=== PATIENT | male | born 1965 | race Caucasian/White ===

== ENCOUNTER 2019-05-26 16:29 | Observation (INO) | payer SELFPAY ==
[2019-05-26] MEDS ORDERED: Sodium Chloride 0.9% 1,000 ML IV ONE (16:35)
--- NOTE | 2019-05-26 16:38 | EDM.PDOC ---
ED HPI GENERAL MEDICAL PROBLEM - General Chief Complaint: General Stated Complaint: STOMACH FLU Time Seen by Provider: 05/26/19 16:32 - History of Present Illness INITIAL COMMENTS - FREE TEXT/NARRATIVE: HISTORY AND PHYSICAL: History of present illness: 53-year-old white male with no significant past medical history presents with a concern of generalized weakness and confusion with an worse over the last several weeks he did have a fall today without associated trauma he presents by EMS were called by his brother. Patient denies chest pain palpitations shortness breath fever chills he does refer nausea. Review of systems: As per history of present illness and below otherwise all systems reviewed and negative. Past medical history: As per history of present illness and as reviewed below otherwise noncontributory. Surgical history: As per history of present illness and as reviewed below otherwise noncontributory. Social history: No reported history of drug or alcohol abuse. Family history: As per history of present illness and as reviewed below otherwise noncontributory. Physical exam: HEENT: Atraumatic, normocephalic, pupils reactive, negative for conjunctival pallor or scleral icterus, mucous membranes moist, throat clear, neck supple, nontender, trachea midline. Lungs: Clear to auscultation, breath sounds equal bilaterally, chest nontender. Heart: S1S2, regular, negative for clicks, rubs, or JVD. Abdomen: Soft, nondistended, nontender. Negative for masses or hepatosplenomegaly. Negative for costovertebral tenderness. Pelvis: Stable nontender. Genitourinary: Deferred. Rectal: Deferred. Extremities: Atraumatic, negative for cords or calf pain. Neurovascular unremarkable. Neuro: Awake, alert, oriented person and place Cranial nerves II through XII unremarkable. Cerebellum unremarkable. Motor and sensory unremarkable throughout. Exam nonfocal. Diagnostics: CBC CMP troponin PT/INR chest x-ray EKG CT brain ammonia level blood cultures 2 UA urine drug screen lactate ABG Therapeutics: IV O2 monitor Impression: #1 altered mental status #2 generalized weakness #3 history of fall Definitive disposition and diagnosis as appropriate pending reevaluation and review of above. - Related Data Allergies Allergy/AdvReac Type Severity Reaction Status Date / Time No Known Allergies Allergy Verified 05/26/19 16:38 Home Meds: Home Meds . [No Known Home Meds] 06/28/14 [History] ED ROS GENERAL - Review of Systems Review Of Systems: Comprehensive ROS is negative, except as noted in HPI. ED EXAM, GENERAL - Physical Exam Exam: See Below (See dictation) Course - Vital Signs Last Recorded V/S: Last Vital Signs Temp 36.3 C 05/26/19 16:35 Pulse 91 05/26/19 17:04 Resp 16 05/26/19 17:04 BP 175/125 H 05/26/19 17:04 Pulse Ox 100 05/26/19 17:04 - Orders/Labs/Meds Orders: Active Orders 24 hr Category Date Time Status EKG Documentation Completion [RC] STAT Care 05/26/19 16:34 Active Pulse Oximetry [RC] ASDIRECTED Care 05/26/19 16:34 Active CULTURE BLOOD [BC] Stat Lab 05/26/19 16:32 Received CULTURE BLOOD [BC] Stat Lab 05/26/19 16:55 Received DRUG SCREEN, URINE [URCHEM] Stat Lab 05/26/19 16:34 Ordered UA RFX TERESA AND CULT IF INDIC [URIN] Stat Lab 05/26/19 16:34 Ordered MVI, Adult with Vitamin K [Infuvite Adult] 10 ml Med 05/26/19 17:39 Active Thiamine [Vitamin B-1] 100 mg Folic Acid 1 mg Sodium Chloride 0.9% [Normal Saline] 1,000 ml IV STAT Potassium Chloride Riders [KCL 40 MEQ in Water 100 ML] Med 05/26/19 17:40 Active 40 meq Premix Bag 1 bag IV ONETIME Sodium Chloride 0.9% [Normal Saline] 1,000 ml Med 05/26/19 17:45 Active IV STAT Blood Culture x2 Reflex Set [OM.PC] Stat Oth 05/26/19 16:34 Ordered Medication Orders Multivitamins/Minerals 10 ml/Thiamine HCl 100 mg/ Folic Acid 1 mg/ Sodium Chloride 1,011.2 mls @ 999 mls/hr IV STAT ONE Stop: 05/26/19 18:39 Potassium Chloride 40 meq/ (Premix) 100 mls @ 25 mls/hr IV ONETIME ONE Stop: 05/26/19 21:39 Sodium Chloride (Normal Saline) 1,000 mls @ 150 mls/hr IV STAT KAYLI Labs: Laboratory Tests 05/26/19 05/26/19 05/26/19 Range/Units 16:32 16:32 16:32 WBC 7.49 (4.0-11.0) K/uL RBC 3.71 L (4.50-5.90) M/uL Hgb 12.7 L (13.0-17.0) g/dL Hct 36.7 L (38.0-50.0) % MCV 98.9 H (80.0-98.0) fL MCH 34.2 H (27.0-32.0) pg MCHC 34.6 (31.0-37.0) g/dL RDW Std Deviation 51.2 (28.0-62.0) fl RDW Coeff of Imer 14 (11.0-15.0) % Plt Count 250 (150-400) K/uL MPV 9.40 (7.40-12.00) fL Neut % (Auto) 74.2 (48.0-80.0) % Lymph % (Auto) 16.2 (16.0-40.0) % [place] % (Auto) 9.2 (0.0-15.0) % Eos % (Auto) 0.3 (0.0-7.0) % Baso % (Auto) 0.1 (0.0-1.5) % Neut # (Auto) 5.6 (1.4-5.7) K/uL Lymph # (Auto) 1.2 (0.6-2.4) K/uL [place] # (Auto) 0.7 (0.0-0.8) K/uL Eos # (Auto) 0.0 (0.0-0.7) K/uL Baso # (Auto) 0.0 (0.0-0.1) K/uL Nucleated RBC % 0.2 /100WBC Nucleated RBCs # 0 K/uL INR 1.06 ABG pH (7.35-7.45) ABG pCO2 (35-45) mmHG ABG pO2 (75-100) mmHG ABG HCO3 (22-26) mEq/L ABG Total CO2 ABG Base Excess (-2.0-2.0) Lactate (0.20-2.00) mmol/L Sodium 141 (136-148) mmol/L Potassium 2.7 L (3.5-5.1) mmol/L Chloride 98 (98-107) mmol/L Carbon Dioxide 26.5 (21.0-32.0) mmol/L BUN 21 H (7.0-18.0) mg/dL Creatinine 1.1 (0.8-1.3) mg/dL Est Cr Clr Drug Dosing 71.73 mL/min Estimated GFR (MDRD) > 60.0 ml/min Glucose 111 H (74-106) mg/dL Calcium 8.8 (8.5-10.1) mg/dL Total Bilirubin 1.3 H (0.2-1.0) mg/dL AST 122 H (15-37) IU/L ALT 86 H (14-63) IU/L Alkaline Phosphatase 95 (46-116) U/L Ammonia (19-54) ug/dL Troponin I < 0.050 (0.000-0.056) ng/mL Total Protein 7.6 (6.4-8.2) g/dL Albumin 3.6 (3.4-5.0) g/dL Globulin 4.0 (2.6-4.0) g/dL Albumin/Globulin Ratio 0.9 (0.9-1.6) Lipase 155 (73-393) U/L Ethyl Alcohol < 3.0 mg/dL 05/26/19 05/26/19 05/26/19 Range/Units 16:32 16:32 17:00 WBC (4.0-11.0) K/uL RBC (4.50-5.90) M/uL Hgb (13.0-17.0) g/dL Hct (38.0-50.0) % MCV (80.0-98.0) fL MCH (27.0-32.0) pg MCHC (31.0-37.0) g/dL RDW Std Deviation (28.0-62.0) fl RDW Coeff of Imer (11.0-15.0) % Plt Count (150-400) K/uL MPV (7.40-12.00) fL Neut % (Auto) (48.0-80.0) % Lymph % (Auto) (16.0-40.0) % [place] % (Auto) (0.0-15.0) % Eos % (Auto) (0.0-7.0) % Baso % (Auto) (0.0-1.5) % Neut # (Auto) (1.4-5.7) K/uL Lymph # (Auto) (0.6-2.4) K/uL [place] # (Auto) (0.0-0.8) K/uL Eos # (Auto) (0.0-0.7) K/uL Baso # (Auto) (0.0-0.1) K/uL Nucleated RBC % /100WBC Nucleated RBCs # K/uL INR ABG pH 7.520 H (7.35-7.45) ABG pCO2 35 (35-45) mmHG ABG pO2 77 (75-100) mmHG ABG HCO3 28 H (22-26) mEq/L ABG Total CO2 25.6 ABG Base Excess 5.4 H (-2.0-2.0) Lactate 3.3 H* (0.20-2.00) mmol/L Sodium (136-148) mmol/L Potassium (3.5-5.1) mmol/L Chloride (98-107) mmol/L Carbon Dioxide (21.0-32.0) mmol/L BUN (7.0-18.0) mg/dL Creatinine (0.8-1.3) mg/dL Est Cr Clr Drug Dosing mL/min Estimated GFR (MDRD) ml/min Glucose (74-106) mg/dL Calcium (8.5-10.1) mg/dL Total Bilirubin (0.2-1.0) mg/dL AST (15-37) IU/L ALT (14-63) IU/L Alkaline Phosphatase (46-116) U/L Ammonia < 17 L (19-54) ug/dL Troponin I (0.000-0.056) ng/mL Total Protein (6.4-8.2) g/dL Albumin (3.4-5.0) g/dL Globulin (2.6-4.0) g/dL Albumin/Globulin Ratio (0.9-1.6) Lipase (73-393) U/L Ethyl Alcohol mg/dL Meds: Medications Generic Name Dose Route Start Last Admin Trade Name Freq PRN Reason Stop Dose Admin Multivitamins/Minerals 10 ml/ 1,011.2 mls @ 999 mls/hr 05/26/19 17:39 Thiamine HCl 100 mg/ Folic IV 05/26/19 18:39 Acid 1 mg/ Sodium Chloride STAT ONE Potassium Chloride 40 meq/ 100 mls @ 25 mls/hr 05/26/19 17:40 Premix IV 05/26/19 21:39 ONETIME ONE Sodium Chloride 1,000 mls @ 150 mls/hr 05/26/19 17:45 Normal Saline IV STAT KAYLI Discontinued Medications Generic Name Dose Route Start Last Admin Trade Name Freq PRN Reason Stop Dose Admin Sodium Chloride 1,000 mls @ 999 mls/hr 05/26/19 16:35 05/26/19 16:41 Normal Saline IV 05/26/19 17:35 999 mls/hr STAT ONE Administration Departure - Departure Time of Disposition: 18:04 Disposition: Refer to Observation Condition: Good Clinical Impression: Hypokalemia, Mental status alteration, Fall, Lactic acidemia, Hypertension - Discharge Information Referrals: PCP,None [Primary Care Provider] - Forms: ED Department Discharge - My Orders Last 24 Hours: My Active Orders 05/26/19 16:32 CULTURE BLOOD [BC] Stat 05/26/19 16:34 EKG Documentation Completion [RC] STAT Pulse Oximetry [RC] ASDIRECTED DRUG SCREEN, URINE [URCHEM] Stat UA RFX TERESA AND CULT IF INDIC [URIN] Stat Blood Culture x2 Reflex Set [OM.PC] Stat 05/26/19 16:55 CULTURE BLOOD [BC] Stat 05/26/19 17:39 MVI, Adult with Vitamin K [Infuvite Adult] 10 ml Thiamine [Vitamin B-1] 100 mg Folic Acid 1 mg Sodium Chloride 0.9% [Normal Saline] 1,000 ml IV STAT 05/26/19 17:40 Potassium Chloride Riders [KCL 40 MEQ in Water 100 ML] 40 meq Premix Bag 1 bag IV ONETIME 05/26/19 17:45 Sodium Chloride 0.9% [Normal Saline] 1,000 ml IV STAT - Assessment/Plan Last 24 Hours: My Active Orders 05/26/19 16:32 CULTURE BLOOD [BC] Stat 05/26/19 16:34 EKG Documentation Completion [RC] STAT Pulse Oximetry [RC] ASDIRECTED DRUG SCREEN, URINE [URCHEM] Stat UA RFX TERESA AND CULT IF INDIC [URIN] Stat Blood Culture x2 Reflex Set [OM.PC] Stat 05/26/19 16:55 CULTURE BLOOD [BC] Stat 05/26/19 17:39 MVI, Adult with Vitamin K [Infuvite Adult] 10 ml Thiamine [Vitamin B-1] 100 mg Folic Acid 1 mg Sodium Chloride 0.9% [Normal Saline] 1,000 ml IV STAT 05/26/19 17:40 Potassium Chloride Riders [KCL 40 MEQ in Water 100 ML] 40 meq Premix Bag 1 bag IV ONETIME 05/26/19 17:45 Sodium Chloride 0.9% [Normal Saline] 1,000 ml IV STAT
--- NOTE | 2019-05-26 17:02 | CR ---
INDICATION: Transient alteration of awareness an confusion. Patient would not listen to positioning instructions TECHNIQUE: Chest radiograph 1 view on 2 films COMPARISON: None FINDINGS: Mediastinum: The mediastinum is normal in appearance. The heart silhouette is normal in size and morphology. Lung: Both lungs are unremarkable in appearance. Both apices are partially obscured by the patient`s chin. No sign of pleural effusion seen. No pneumothorax is identified. Bone and Soft tissue: Unremarkable for age. IMPRESSION: 1. No acute cardiopulmonary disease is seen. Dictated by: Damián Yip MD @ 05/26/2019 17:01:04 (Electronically Signed)
[2019-05-26 17:13] LABS: BLOOD UREA NITROGEN,BUN 21 mg/dL (7.0-18.0); CARBON DIOXIDE,CO2 26.5 mmol/L (21.0-32.0); CHLORIDE,CL 98 mmol/L (98-107); GLUCOSE RANDOM 111 mg/dL (74-106); LIPASE 155 U/L (73-393); POTASSIUM,K 2.7 mmol/L (3.5-5.1); SODIUM,NA 141 mmol/L (136-148)
[2019-05-26] MEDS ORDERED: MVI, Adult with Vitamin K 10 ML, Thiamine 100 MG, Folic Acid 1 MG in Sodium Chloride 0.... IV ONE ×4 (17:39)
[2019-05-26] MEDS ORDERED: Potassium Chloride Riders 40 MEQ in Premix Bag 1 BAG IV ONE (17:40)
[2019-05-26] MEDS ORDERED: Sodium Chloride 0.9% 1,000 ML IV SCH (17:45)
--- NOTE | 2019-05-26 17:50 | CT ---
INDICATION: Confusion TECHNIQUE: CT Head without i.v. contrast. COMPARISON: None FINDINGS: CSF space: The ventricles are normal for age. Brain: No evidence of mass, acute infarction or hemorrhage is seen. Mild increased density of the right frontal lobe gyrus is seen near the skullbase on image 23. This is most likely an artifact from beam hardening. No mass-effect or midline shift is seen. Mild patchy regions of low attenuation are present in the periventricular white matter, likely due to chronic microvascular ischemic changes. A small focus of encephalomalacia seen within the medial right frontal lobe Calvarium: The visualized paranasal sinuses are well aerated. The mastoid air cells are clear. The visualized orbits are grossly unremarkable. The calvarium is unremarkable in appearance with no fractures identified. IMPRESSION: 1. No evidence of acute infarction, intracranial hemorrhage, or mass-effect seen. Dictated by Damián Yip MD @ 05/26/2019 5:48:14 PM Please note that all CT scans at this facility use dose modulation, iterative reconstruction, and/or weight-based dosing when appropriate to reduce radiation dose to as low as reasonably achievable. Dictated by: Damián Yip MD @ 05/26/2019 17:48:18 (Electronically Signed)
[2019-05-26] MEDS ORDERED: Acetaminophen 325 MG Tab PO PRN (18:40)
[2019-05-26] MEDS ORDERED: Ondansetron 4 MG Tab.DIS PO PRN (18:40)
[2019-05-26] MEDS ORDERED: Ondansetron 4 MG/2 ML SDV IVPUSH PRN (18:40)
[2019-05-26] MEDS ORDERED: Magnesium Sulfate/Water 2 GM in Premix Bag 1 BAG IV ONE (18:42)
[2019-05-26] MEDS ORDERED: LORazepam 0.5 MG Tab PO PRN (18:45)
[2019-05-26] MEDS ORDERED: Potassium Chloride 20 MEQ Tab.ER PO ONE (18:48)
--- NOTE | 2019-05-26 18:53 | PCM.HP.2 ---
H&P History of Present Illness - General Date of Service: 05/26/19 Admit Problem/Dx: Admission Diagnosis/Problem Admission Diagnosis/Problem Hypokalemia Source of Information: Patient History Limitations: Reports: Altered Mental Status - History of Present Illness Initial Comments - Free Text/Narative: 53-year-old male presented to ER via EMS with generalized weakness and confusion. He reports no past medical history. Patient reports that he was sitting at the edge of a bathtub this morning and then fell. He does not recall falling and could not provide any further details. Patient reports the next thing he remembers is being in the ER. At bedside, patient cannot recall what city he is in, why he is in the hospital or the date correctly. He does identify himself and his birthday correctly. Patient reports no complaints at this time and denies having any fevers, chills, blurry vision, sore throat, cough, shortness of breath, chest pain, nausea, vomiting, diarrhea, dysuria, blood in stool, numbness or tingling in extremities. Patient reports that he drinks "a few glasses of whiskey" every night. Smokes 1 ppd. Denied any illicit drug use. In the ER, CBC unremarkable, potassium 2.7, lactate 3.3, transaminitis and UDS negative. CT head negative. CXR negative. Patient started on banana bag, 1 L NS bolus and started on IV KCl 40 mEq. - Related Data Allergies/Adverse Reactions: Allergies Allergy/AdvReac Type Severity Reaction Status Date / Time No Known Allergies Allergy Verified 05/26/19 16:38 Home Medications: Home Meds . [No Known Home Meds] 12/15/13 [History] Past Medical History - Past Health History Medical/Surgical History: Denies Medical/Surgical History - Infectious Disease History Infectious Disease History: Reports: Mumps Social & Family History - Family History Family Medical History: Noncontributory - Tobacco Use Smoking Status *Q: Current Every Day Smoker Years of Tobacco use: 40 Packs/Tins Daily: 0.5 - Recreational Drug Use Recreational Drug Use: No H&P Review of Systems - Review of Systems: Review Of Systems: Comprehensive ROS is negative, except as noted in HPI. Exam - Exam Exam: See Below - Vital Signs Vital Signs: Last Vital Signs Temp 97.3 F 05/26/19 16:35 Pulse 80 05/26/19 18:25 Resp 16 05/26/19 18:25 BP 177/115 H 05/26/19 18:25 Pulse Ox 100 05/26/19 18:25 Weight: 143 lb 15.39 oz - Exam General: Alert, Other (AOx1.) HEENT: Conjunctiva Clear, EOMI, Hearing Intact, Mucosa Moist & [place], Posterior Pharynx Clear, Pupils Equal, Pupils Reactive, Other (No nystagmus.) Neck: Supple, Trachea Midline Lungs: Clear to Auscultation, Normal Respiratory Effort Cardiovascular: Regular Rate, Regular Rhythm GI/Abdominal Exam: Normal Bowel Sounds, Soft, Non-Tender, No Distention Extremities: Normal Inspection, No Pedal Edema Peripheral Pulses: 2+: Posterior Tibial (L), Posterior Tibial (R) Skin: Warm, Dry, Intact Neurological: Cranial Nerves Intact, Strength Equal Bilateral, Normal Speech, Normal Tone, Other (No focal deficits.) Neuro Extensive - Mental Status: Disorientation to Place, Disorientation to Time - Patient Data Lab Results Last 24 hrs: Laboratory Results - last 24 hr 05/26/19 05/26/19 05/26/19 Range/Units 16:32 16:32 16:32 WBC 7.49 (4.0-11.0) K/uL RBC 3.71 L (4.50-5.90) M/uL Hgb 12.7 L (13.0-17.0) g/dL Hct 36.7 L (38.0-50.0) % MCV 98.9 H (80.0-98.0) fL MCH 34.2 H (27.0-32.0) pg MCHC 34.6 (31.0-37.0) g/dL RDW Std Deviation 51.2 (28.0-62.0) fl RDW Coeff of Imer 14 (11.0-15.0) % Plt Count 250 (150-400) K/uL MPV 9.40 (7.40-12.00) fL Neut % (Auto) 74.2 (48.0-80.0) % Lymph % (Auto) 16.2 (16.0-40.0) % [place] % (Auto) 9.2 (0.0-15.0) % Eos % (Auto) 0.3 (0.0-7.0) % Baso % (Auto) 0.1 (0.0-1.5) % Neut # (Auto) 5.6 (1.4-5.7) K/uL Lymph # (Auto) 1.2 (0.6-2.4) K/uL [place] # (Auto) 0.7 (0.0-0.8) K/uL Eos # (Auto) 0.0 (0.0-0.7) K/uL Baso # (Auto) 0.0 (0.0-0.1) K/uL Nucleated RBC % 0.2 /100WBC Nucleated RBCs # 0 K/uL INR 1.06 ABG pH (7.35-7.45) ABG pCO2 (35-45) mmHG ABG pO2 (75-100) mmHG ABG HCO3 (22-26) mEq/L ABG Total CO2 ABG Base Excess (-2.0-2.0) Lactate (0.20-2.00) mmol/L Sodium 141 (136-148) mmol/L Potassium 2.7 L (3.5-5.1) mmol/L Chloride 98 (98-107) mmol/L Carbon Dioxide 26.5 (21.0-32.0) mmol/L BUN 21 H (7.0-18.0) mg/dL Creatinine 1.1 (0.8-1.3) mg/dL Est Cr Clr Drug Dosing 71.73 mL/min Estimated GFR (MDRD) > 60.0 ml/min Glucose 111 H (74-106) mg/dL Calcium 8.8 (8.5-10.1) mg/dL Phosphorus (2.6-4.7) mg/dL Magnesium (1.8-2.4) mg/dL Total Bilirubin 1.3 H (0.2-1.0) mg/dL AST 122 H (15-37) IU/L ALT 86 H (14-63) IU/L Alkaline Phosphatase 95 (46-116) U/L Ammonia (19-54) ug/dL Troponin I < 0.050 (0.000-0.056) ng/mL Total Protein 7.6 (6.4-8.2) g/dL Albumin 3.6 (3.4-5.0) g/dL Globulin 4.0 (2.6-4.0) g/dL Albumin/Globulin Ratio 0.9 (0.9-1.6) Lipase 155 (73-393) U/L Urine Color Urine Appearance Urine pH (5.0-8.0) Ur Specific [place] (1.001-1.035) Urine Protein (NEGATIVE) mg/dL Urine Glucose (UA) (NEGATIVE) mg/dL Urine Ketones (NEGATIVE) mg/dL Urine Occult Blood (NEGATIVE) Urine Nitrite (NEGATIVE) Urine Bilirubin (NEGATIVE) Urine Ictotest Urine Urobilinogen (<2.0) EU/dL Ur Leukocyte Esterase (NEGATIVE) Urine RBC (0-2/HPF) Urine WBC (0-5/HPF) Ur Epithelial Cells (NONE-FEW) Urine Bacteria (NEGATIVE) Urine Mucus (NONE-MOD) Urine Opiates Screen (NEGATIVE) Ur Oxycodone Screen (NEGATIVE) Urine Methadone Screen (NEGATIVE) Ur Barbiturates Screen (NEGATIVE) Ur Phencyclidine Scrn (NEGATIVE) Ur Amphetamine Screen (NEGATIVE) U Methamphetamines Scrn (NEGATIVE) U Benzodiazepines Scrn (NEGATIVE) U Cocaine Metab Screen (NEGATIVE) U Marijuana (THC) Screen (NEGATIVE) Ethyl Alcohol < 3.0 mg/dL 05/26/19 05/26/19 05/26/19 Range/Units 16:32 16:32 16:32 WBC (4.0-11.0) K/uL RBC (4.50-5.90) M/uL Hgb (13.0-17.0) g/dL Hct (38.0-50.0) % MCV (80.0-98.0) fL MCH (27.0-32.0) pg MCHC (31.0-37.0) g/dL RDW Std Deviation (28.0-62.0) fl RDW Coeff of Imer (11.0-15.0) % Plt Count (150-400) K/uL MPV (7.40-12.00) fL Neut % (Auto) (48.0-80.0) % Lymph % (Auto) (16.0-40.0) % [place] % (Auto) (0.0-15.0) % Eos % (Auto) (0.0-7.0) % Baso % (Auto) (0.0-1.5) % Neut # (Auto) (1.4-5.7) K/uL Lymph # (Auto) (0.6-2.4) K/uL [place] # (Auto) (0.0-0.8) K/uL Eos # (Auto) (0.0-0.7) K/uL Baso # (Auto) (0.0-0.1) K/uL Nucleated RBC % /100WBC Nucleated RBCs # K/uL INR ABG pH (7.35-7.45) ABG pCO2 (35-45) mmHG ABG pO2 (75-100) mmHG ABG HCO3 (22-26) mEq/L ABG Total CO2 ABG Base Excess (-2.0-2.0) Lactate 3.3 H* (0.20-2.00) mmol/L Sodium (136-148) mmol/L Potassium (3.5-5.1) mmol/L Chloride (98-107) mmol/L Carbon Dioxide (21.0-32.0) mmol/L BUN (7.0-18.0) mg/dL Creatinine (0.8-1.3) mg/dL Est Cr Clr Drug Dosing mL/min Estimated GFR (MDRD) ml/min Glucose (74-106) mg/dL Calcium (8.5-10.1) mg/dL Phosphorus 4.2 (2.6-4.7) mg/dL Magnesium (1.8-2.4) mg/dL Total Bilirubin (0.2-1.0) mg/dL AST (15-37) IU/L ALT (14-63) IU/L Alkaline Phosphatase (46-116) U/L Ammonia < 17 L (19-54) ug/dL Troponin I (0.000-0.056) ng/mL Total Protein (6.4-8.2) g/dL Albumin (3.4-5.0) g/dL Globulin (2.6-4.0) g/dL Albumin/Globulin Ratio (0.9-1.6) Lipase (73-393) U/L Urine Color Urine Appearance Urine pH (5.0-8.0) Ur Specific [place] (1.001-1.035) Urine Protein (NEGATIVE) mg/dL Urine Glucose (UA) (NEGATIVE) mg/dL Urine Ketones (NEGATIVE) mg/dL Urine Occult Blood (NEGATIVE) Urine Nitrite (NEGATIVE) Urine Bilirubin (NEGATIVE) Urine Ictotest Urine Urobilinogen (<2.0) EU/dL Ur Leukocyte Esterase (NEGATIVE) Urine RBC (0-2/HPF) Urine WBC (0-5/HPF) Ur Epithelial Cells (NONE-FEW) Urine Bacteria (NEGATIVE) Urine Mucus (NONE-MOD) Urine Opiates Screen (NEGATIVE) Ur Oxycodone Screen (NEGATIVE) Urine Methadone Screen (NEGATIVE) Ur Barbiturates Screen (NEGATIVE) Ur Phencyclidine Scrn (NEGATIVE) Ur Amphetamine Screen (NEGATIVE) U Methamphetamines Scrn (NEGATIVE) U Benzodiazepines Scrn (NEGATIVE) U Cocaine Metab Screen (NEGATIVE) U Marijuana (THC) Screen (NEGATIVE) Ethyl Alcohol mg/dL 05/26/19 05/26/19 05/26/19 Range/Units 16:37 17:00 18:00 WBC (4.0-11.0) K/uL RBC (4.50-5.90) M/uL Hgb (13.0-17.0) g/dL Hct (38.0-50.0) % MCV (80.0-98.0) fL MCH (27.0-32.0) pg MCHC (31.0-37.0) g/dL RDW Std Deviation (28.0-62.0) fl RDW Coeff of Imer (11.0-15.0) % Plt Count (150-400) K/uL MPV (7.40-12.00) fL Neut % (Auto) (48.0-80.0) % Lymph % (Auto) (16.0-40.0) % [place] % (Auto) (0.0-15.0) % Eos % (Auto) (0.0-7.0) % Baso % (Auto) (0.0-1.5) % Neut # (Auto) (1.4-5.7) K/uL Lymph # (Auto) (0.6-2.4) K/uL [place] # (Auto) (0.0-0.8) K/uL Eos # (Auto) (0.0-0.7) K/uL Baso # (Auto) (0.0-0.1) K/uL Nucleated RBC % /100WBC Nucleated RBCs # K/uL INR ABG pH 7.520 H (7.35-7.45) ABG pCO2 35 (35-45) mmHG ABG pO2 77 (75-100) mmHG ABG HCO3 28 H (22-26) mEq/L ABG Total CO2 25.6 ABG Base Excess 5.4 H (-2.0-2.0) Lactate (0.20-2.00) mmol/L Sodium (136-148) mmol/L Potassium (3.5-5.1) mmol/L Chloride (98-107) mmol/L Carbon Dioxide (21.0-32.0) mmol/L BUN (7.0-18.0) mg/dL Creatinine (0.8-1.3) mg/dL Est Cr Clr Drug Dosing mL/min Estimated GFR (MDRD) ml/min Glucose (74-106) mg/dL Calcium (8.5-10.1) mg/dL Phosphorus (2.6-4.7) mg/dL Magnesium 1.5 L (1.8-2.4) mg/dL Total Bilirubin (0.2-1.0) mg/dL AST (15-37) IU/L ALT (14-63) IU/L Alkaline Phosphatase (46-116) U/L Ammonia (19-54) ug/dL Troponin I (0.000-0.056) ng/mL Total Protein (6.4-8.2) g/dL Albumin (3.4-5.0) g/dL Globulin (2.6-4.0) g/dL Albumin/Globulin Ratio (0.9-1.6) Lipase (73-393) U/L Urine Color ORANGE Urine Appearance CLEAR Urine pH 7.0 (5.0-8.0) Ur Specific [place] 1.010 (1.001-1.035) Urine Protein TRACE H (NEGATIVE) mg/dL Urine Glucose (UA) NEGATIVE (NEGATIVE) mg/dL Urine Ketones 15 H (NEGATIVE) mg/dL Urine Occult Blood NEGATIVE (NEGATIVE) Urine Nitrite POSITIVE H (NEGATIVE) Urine Bilirubin MODERATE H (NEGATIVE) Urine Ictotest NEGATIVE Urine Urobilinogen >=8.0 H (<2.0) EU/dL Ur Leukocyte Esterase NEGATIVE (NEGATIVE) Urine RBC 0-2 (0-2/HPF) Urine WBC 0-1 (0-5/HPF) Ur Epithelial Cells RARE (NONE-FEW) Urine Bacteria FEW (NEGATIVE) Urine Mucus LIGHT (NONE-MOD) Urine Opiates Screen (NEGATIVE) Ur Oxycodone Screen (NEGATIVE) Urine Methadone Screen (NEGATIVE) Ur Barbiturates Screen (NEGATIVE) Ur Phencyclidine Scrn (NEGATIVE) Ur Amphetamine Screen (NEGATIVE) U Methamphetamines Scrn (NEGATIVE) U Benzodiazepines Scrn (NEGATIVE) U Cocaine Metab Screen (NEGATIVE) U Marijuana (THC) Screen (NEGATIVE) Ethyl Alcohol mg/dL 05/26/19 Range/Units 18:00 WBC (4.0-11.0) K/uL RBC (4.50-5.90) M/uL Hgb (13.0-17.0) g/dL Hct (38.0-50.0) % MCV (80.0-98.0) fL MCH (27.0-32.0) pg MCHC (31.0-37.0) g/dL RDW Std Deviation (28.0-62.0) fl RDW Coeff of [place] (11.0-15.0) % Plt Count (150-400) K/uL MPV (7.40-12.00) fL Neut % (Auto) (48.0-80.0) % Lymph % (Auto) (16.0-40.0) % [place] % (Auto) (0.0-15.0) % Eos % (Auto) (0.0-7.0) % Baso % (Auto) (0.0-1.5) % Neut # (Auto) (1.4-5.7) K/uL Lymph # (Auto) (0.6-2.4) K/uL [place] # (Auto) (0.0-0.8) K/uL Eos # (Auto) (0.0-0.7) K/uL Baso # (Auto) (0.0-0.1) K/uL Nucleated RBC % /100WBC Nucleated RBCs # K/uL INR ABG pH (7.35-7.45) ABG pCO2 (35-45) mmHG ABG pO2 (75-100) mmHG ABG HCO3 (22-26) mEq/L ABG Total CO2 ABG Base Excess (-2.0-2.0) Lactate (0.20-2.00) mmol/L Sodium (136-148) mmol/L Potassium (3.5-5.1) mmol/L Chloride (98-107) mmol/L Carbon Dioxide (21.0-32.0) mmol/L BUN (7.0-18.0) mg/dL Creatinine (0.8-1.3) mg/dL Est Cr Clr Drug Dosing mL/min Estimated GFR (MDRD) ml/min Glucose (74-106) mg/dL Calcium (8.5-10.1) mg/dL Phosphorus (2.6-4.7) mg/dL Magnesium (1.8-2.4) mg/dL Total Bilirubin (0.2-1.0) mg/dL AST (15-37) IU/L ALT (14-63) IU/L Alkaline Phosphatase (46-116) U/L Ammonia (19-54) ug/dL Troponin I (0.000-0.056) ng/mL Total Protein (6.4-8.2) g/dL Albumin (3.4-5.0) g/dL Globulin (2.6-4.0) g/dL Albumin/Globulin Ratio (0.9-1.6) Lipase (73-393) U/L Urine Color Urine Appearance Urine pH (5.0-8.0) Ur Specific [place] (1.001-1.035) Urine Protein (NEGATIVE) mg/dL Urine Glucose (UA) (NEGATIVE) mg/dL Urine Ketones (NEGATIVE) mg/dL Urine Occult Blood (NEGATIVE) Urine Nitrite (NEGATIVE) Urine Bilirubin (NEGATIVE) Urine Ictotest Urine Urobilinogen (<2.0) EU/dL Ur Leukocyte Esterase (NEGATIVE) Urine RBC (0-2/HPF) Urine WBC (0-5/HPF) Ur Epithelial Cells (NONE-FEW) Urine Bacteria (NEGATIVE) Urine Mucus (NONE-MOD) Urine Opiates Screen NEGATIVE (NEGATIVE) Ur Oxycodone Screen NEGATIVE (NEGATIVE) Urine Methadone Screen NEGATIVE (NEGATIVE) Ur Barbiturates Screen NEGATIVE (NEGATIVE) Ur Phencyclidine Scrn NEGATIVE (NEGATIVE) Ur Amphetamine Screen NEGATIVE (NEGATIVE) U Methamphetamines Scrn NEGATIVE (NEGATIVE) U Benzodiazepines Scrn NEGATIVE (NEGATIVE) U Cocaine Metab Screen NEGATIVE (NEGATIVE) U Marijuana (THC) Screen NEGATIVE (NEGATIVE) Ethyl Alcohol mg/dL Result Diagrams: 05/26/19 16:32 05/26/19 16:32 Problem List Initiated/Reviewed/Updated: Yes Orders Last 24hrs: Active Orders 24 hr Category Date Time Status Patient Status [ADT] Stat ADT 05/26/19 18:06 Active CIWAA Assessment [RC] Q4H Care 05/26/19 18:44 Ordered EKG Documentation Completion [RC] STAT Care 05/26/19 16:34 Active Oxygen Therapy [RC] PRN Care 05/26/19 18:40 Ordered Pulse Oximetry [RC] ASDIRECTED Care 05/26/19 16:34 Active Up With Assistance [RC] ASDIRECTED Care 05/26/19 18:40 Ordered VTE/DVT Education [RC] PER UNIT ROUTINE Care 05/26/19 18:40 Ordered Vital Signs [RC] Q4H Care 05/26/19 18:40 Ordered Regular Diet [DIET] Diet 05/26/19 Dinner Ordered CBC WITH AUTO DIFF [HEME] AM Lab 05/27/19 05:11 Ordered COMPREHENSIVE METABOLIC PN,CMP [CHEM] AM Lab 05/27/19 05:11 Ordered CULTURE BLOOD [BC] Stat Lab 05/26/19 16:32 Received CULTURE BLOOD [BC] Stat Lab 05/26/19 16:55 Received CULTURE URINE [RM] Stat Lab 05/26/19 18:00 Received Acetaminophen [Tylenol] Med 05/26/19 18:40 Ordered 650 mg PO Q4H PRN Enoxaparin [Lovenox] Med 05/26/19 18:45 Ordered 40 mg SUBCUT Q24H Folic Acid Med 05/26/19 21:00 Ordered 1 mg PO BEDTIME LORazepam [Ativan] Med 05/26/19 18:45 Ordered See Protocol PO Q6H PRN Magnesium Sulfate/Water [Magnesium Sulfate in Water Med 05/26/19 18:42 Ordered Premix] 2 gm Premix Bag 1 bag IV ONETIME Ondansetron [Zofran ODT] Med 05/26/19 18:40 Ordered 4 mg PO Q4H PRN Ondansetron [Zofran] Med 05/26/19 18:40 Ordered 4 mg IVPUSH Q4H PRN Potassium Chloride Riders [KCL 40 MEQ in Water 100 ML] Med 05/26/19 17:40 Active 40 meq Premix Bag 1 bag IV ONETIME Potassium Chloride [Klor-Con M20] Med 05/26/19 18:48 Once 40 meq PO ONETIME ONE Sodium Chloride 0.9% [Normal Saline] 1,000 ml Med 05/26/19 17:45 Active IV STAT Thiamine [Vitamin B-1] Med 05/26/19 21:00 Ordered 100 mg PO BEDTIME Blood Culture x2 Reflex Set [OM.PC] Stat Oth 05/26/19 16:34 Ordered Resuscitation Status Routine Resus Stat 05/26/19 18:40 Ordered Medication Orders Acetaminophen (Tylenol) 650 mg PO Q4H PRN PRN Reason: Pain (Mild 1-3)/fever Enoxaparin Sodium (Lovenox) 40 mg SUBCUT Q24H KAYLI Folic Acid (Folic Acid) 1 mg PO BEDTIME KAYLI Potassium Chloride 40 meq/ (Premix) 100 mls @ 25 mls/hr IV ONETIME ONE Stop: 05/26/19 21:39 Last Admin: 05/26/19 18:20 Dose: 25 mls/hr Sodium Chloride (Normal Saline) 1,000 mls @ 150 mls/hr IV STAT KAYLI Last Infusion: 05/26/19 18:24 Dose: 100 mls/hr Admin: 05/26/19 18:21 Dose: 150 mls/hr Magnesium Sulfate 2 gm/ Premix 50 mls @ 25 mls/hr IV ONETIME ONE Stop: 05/26/19 20:41 Lorazepam (Ativan) 0 mg PO Q6H PRN; Protocol PRN Reason: Agitation Ondansetron HCl (Zofran Odt) 4 mg PO Q4H PRN PRN Reason: nausea, able to take PO Ondansetron HCl (Zofran) 4 mg IVPUSH Q4H PRN PRN Reason: Nausea Potassium Chloride (Klor-Con M20) 40 meq PO ONETIME ONE Stop: 05/26/19 18:49 Thiamine HCl (Vitamin B-1) 100 mg PO BEDTIME [facility] Assessment/Plan Comment:: Assessment and Plan: 1. Altered mental status: CT head negative. Patient currently AOx1. No focal neurological deficits. Will continue to monitor. IV NS 100 cc/ hr. Patient received 1L NS bolus in ER. UDS negative. Blood cultures pending. 2. UTI in the setting of #1: Will start treatment with IV ceftriaxone. Urine cultures pending. 3. Hypertension: Labetalol prn SBP > 180 mm Hg. 4. Hypokalemia: Patient received IV 40 mEq KCl in ER. Will give additional 40 mEq KCl PO. Will recheck with AM labs. 5. Hypomagnesemia: Replete with 2 g IV magnesium sulfate. 6. Transaminitis. 7. Alcohol abuse: CIWA assessment protocol. Ativan on board prn CIWA protocol. Thiamine and folic acid PO starting tomorrow as patient received banana bag in the ER.
[2019-05-26] MEDS ORDERED: Labetalol 100 MG/20 ML MDV IVPUSH PRN (19:06)
[2019-05-26] MEDS ORDERED: Thiamine 100 MG Tab PO SCH (21:00)
[2019-05-26] MEDS ORDERED: Folic Acid 1 MG Tab PO SCH (21:00)
[2019-05-26] MEDS: Enoxaparin 40 MG/0.4 ML Syringe SUBCUT SCH (21:03)
[2019-05-26] MEDS: cefTRIAXone 1 GM in Premix Bag 1 BAG IV SCH (21:38)
[2019-05-26] MEDS: Sodium Chloride 0.9% 1,000 ML IV SCH (22:24)
[2019-05-27] MEDS: Nicotine 14 MG/24 Hr Patch TRDERM SCH ×2 (01:04→10:05)
[2019-05-27] MEDS: Sodium Chloride 0.9% 1,000 ML IV SCH ×2 (04:13→17:51)
[2019-05-27 06:46] LABS: HEMOGLOBIN A1C 5.4 % (4.5-6.2)
[2019-05-27 07:04] LABS: BLOOD UREA NITROGEN,BUN 14 mg/dL (7.0-18.0); CARBON DIOXIDE,CO2 23.9 mmol/L (21.0-32.0); CHLORIDE,CL 105 mmol/L (98-107); GLUCOSE RANDOM 70 mg/dL (74-106); POTASSIUM,K 2.7 mmol/L (3.5-5.1); SODIUM,NA 143 mmol/L (136-148)
[2019-05-27] MEDS: amLODIPine 5 MG Tab PO SCH (11:04)
--- NOTE | 2019-05-27 13:16 | PCM.PN ---
- General Info Date of Service: 05/27/19 Admission Dx/Problem (Free Text): Admission Diagnosis/Problem Admission Diagnosis/Problem Hypokalemia Subjective Update: Seen and examined at bedside. AAO*3 but very slow to respond. Denied cp, N/V fevers Functional Status: Reports: Pain Controlled - Review of Systems General: Denies: Fever, Weakness, Fatigue Pulmonary: Denies: Shortness of Breath, Pleuritic Chest Pain Cardiovascular: Denies: Chest Pain, Palpitations Gastrointestinal: Denies: Abdominal Pain, Constipation Genitourinary: Denies: Dysuria, Frequency, Burning Musculoskeletal: Denies: Neck Pain, Shoulder Pain - Patient Data Vitals - Most Recent: Last Vital Signs Temp 36.3 C 05/27/19 12:00 Pulse 95 05/27/19 12:00 Resp 18 05/27/19 12:00 BP 117/83 05/27/19 12:00 Pulse Ox 100 05/27/19 12:00 Weight - Most Recent: 68.4 kg I&O - Last 24 Hours: Intake & Output 05/26/19 05/27/19 05/27/19 22:59 06:59 14:59 Intake Total 150 1326 250 Output Total 200 450 Balance -50 876 250 Lab Results Last 24 Hours: Laboratory Results - last 24 hr 05/26/19 05/26/19 05/26/19 Range/Units 16:32 16:32 16:32 WBC 7.49 (4.0-11.0) K/uL RBC 3.71 L (4.50-5.90) M/uL Hgb 12.7 L (13.0-17.0) g/dL Hct 36.7 L (38.0-50.0) % MCV 98.9 H (80.0-98.0) fL MCH 34.2 H (27.0-32.0) pg MCHC 34.6 (31.0-37.0) g/dL RDW Std Deviation 51.2 (28.0-62.0) fl RDW Coeff of Imer 14 (11.0-15.0) % Plt Count 250 (150-400) K/uL MPV 9.40 (7.40-12.00) fL Neut % (Auto) 74.2 (48.0-80.0) % Lymph % (Auto) 16.2 (16.0-40.0) % Gaston % (Auto) 9.2 (0.0-15.0) % Eos % (Auto) 0.3 (0.0-7.0) % Baso % (Auto) 0.1 (0.0-1.5) % Neut # (Auto) 5.6 (1.4-5.7) K/uL Lymph # (Auto) 1.2 (0.6-2.4) K/uL Gaston # (Auto) 0.7 (0.0-0.8) K/uL Eos # (Auto) 0.0 (0.0-0.7) K/uL Baso # (Auto) 0.0 (0.0-0.1) K/uL Nucleated RBC % 0.2 /100WBC Nucleated RBCs # 0 K/uL INR 1.06 ABG pH (7.35-7.45) ABG pCO2 (35-45) mmHG ABG pO2 (75-100) mmHG ABG HCO3 (22-26) mEq/L ABG Total CO2 ABG Base Excess (-2.0-2.0) Lactate (0.20-2.00) mmol/L Sodium 141 (136-148) mmol/L Potassium 2.7 L (3.5-5.1) mmol/L Chloride 98 (98-107) mmol/L Carbon Dioxide 26.5 (21.0-32.0) mmol/L BUN 21 H (7.0-18.0) mg/dL Creatinine 1.1 (0.8-1.3) mg/dL Est Cr Clr Drug Dosing 71.73 mL/min Estimated GFR (MDRD) > 60.0 ml/min Glucose 111 H (74-106) mg/dL Hemoglobin A1c (4.5-6.2) % Calcium 8.8 (8.5-10.1) mg/dL Phosphorus (2.6-4.7) mg/dL Magnesium (1.8-2.4) mg/dL Total Bilirubin 1.3 H (0.2-1.0) mg/dL AST 122 H (15-37) IU/L ALT 86 H (14-63) IU/L Alkaline Phosphatase 95 (46-116) U/L Ammonia (19-54) ug/dL Troponin I < 0.050 (0.000-0.056) ng/mL Total Protein 7.6 (6.4-8.2) g/dL Albumin 3.6 (3.4-5.0) g/dL Globulin 4.0 (2.6-4.0) g/dL Albumin/Globulin Ratio 0.9 (0.9-1.6) Triglycerides (0-200) mg/dL Cholesterol (50-200) mg/dL LDL Cholesterol, Calc (60-180) mg/dL VLDL Cholesterol (5-55) mg/dL HDL Cholesterol (40-60) mg/dL Cholesterol/HDL Ratio (3.3-6.0) Lipase 155 (73-393) U/L TSH 3rd Generation (0.36-3.74) uIU/mL Urine Color Urine Appearance Urine pH (5.0-8.0) Ur Specific Franklin (1.001-1.035) Urine Protein (NEGATIVE) mg/dL Urine Glucose (UA) (NEGATIVE) mg/dL Urine Ketones (NEGATIVE) mg/dL Urine Occult Blood (NEGATIVE) Urine Nitrite (NEGATIVE) Urine Bilirubin (NEGATIVE) Urine Ictotest Urine Urobilinogen (<2.0) EU/dL Ur Leukocyte Esterase (NEGATIVE) Urine RBC (0-2/HPF) Urine WBC (0-5/HPF) Ur Epithelial Cells (NONE-FEW) Urine Bacteria (NEGATIVE) Urine Mucus (NONE-MOD) Urine Opiates Screen (NEGATIVE) Ur Oxycodone Screen (NEGATIVE) Urine Methadone Screen (NEGATIVE) Ur Barbiturates Screen (NEGATIVE) Ur Phencyclidine Scrn (NEGATIVE) Ur Amphetamine Screen (NEGATIVE) U Methamphetamines Scrn (NEGATIVE) U Benzodiazepines Scrn (NEGATIVE) U Cocaine Metab Screen (NEGATIVE) U Marijuana (THC) Screen (NEGATIVE) Ethyl Alcohol < 3.0 mg/dL 05/26/19 05/26/19 05/26/19 Range/Units 16:32 16:32 16:32 WBC (4.0-11.0) K/uL RBC (4.50-5.90) M/uL Hgb (13.0-17.0) g/dL Hct (38.0-50.0) % MCV (80.0-98.0) fL MCH (27.0-32.0) pg MCHC (31.0-37.0) g/dL RDW Std Deviation (28.0-62.0) fl RDW Coeff of Imer (11.0-15.0) % Plt Count (150-400) K/uL MPV (7.40-12.00) fL Neut % (Auto) (48.0-80.0) % Lymph % (Auto) (16.0-40.0) % Gaston % (Auto) (0.0-15.0) % Eos % (Auto) (0.0-7.0) % Baso % (Auto) (0.0-1.5) % Neut # (Auto) (1.4-5.7) K/uL Lymph # (Auto) (0.6-2.4) K/uL Gaston # (Auto) (0.0-0.8) K/uL Eos # (Auto) (0.0-0.7) K/uL Baso # (Auto) (0.0-0.1) K/uL Nucleated RBC % /100WBC Nucleated RBCs # K/uL INR ABG pH (7.35-7.45) ABG pCO2 (35-45) mmHG ABG pO2 (75-100) mmHG ABG HCO3 (22-26) mEq/L ABG Total CO2 ABG Base Excess (-2.0-2.0) Lactate 3.3 H* (0.20-2.00) mmol/L Sodium (136-148) mmol/L Potassium (3.5-5.1) mmol/L Chloride (98-107) mmol/L Carbon Dioxide (21.0-32.0) mmol/L BUN (7.0-18.0) mg/dL Creatinine (0.8-1.3) mg/dL Est Cr Clr Drug Dosing mL/min Estimated GFR (MDRD) ml/min Glucose (74-106) mg/dL Hemoglobin A1c (4.5-6.2) % Calcium (8.5-10.1) mg/dL Phosphorus 4.2 (2.6-4.7) mg/dL Magnesium (1.8-2.4) mg/dL Total Bilirubin (0.2-1.0) mg/dL AST (15-37) IU/L ALT (14-63) IU/L Alkaline Phosphatase (46-116) U/L Ammonia < 17 L (19-54) ug/dL Troponin I (0.000-0.056) ng/mL Total Protein (6.4-8.2) g/dL Albumin (3.4-5.0) g/dL Globulin (2.6-4.0) g/dL Albumin/Globulin Ratio (0.9-1.6) Triglycerides (0-200) mg/dL Cholesterol (50-200) mg/dL LDL Cholesterol, Calc (60-180) mg/dL VLDL Cholesterol (5-55) mg/dL HDL Cholesterol (40-60) mg/dL Cholesterol/HDL Ratio (3.3-6.0) Lipase (73-393) U/L TSH 3rd Generation (0.36-3.74) uIU/mL Urine Color Urine Appearance Urine pH (5.0-8.0) Ur Specific Franklin (1.001-1.035) Urine Protein (NEGATIVE) mg/dL Urine Glucose (UA) (NEGATIVE) mg/dL Urine Ketones (NEGATIVE) mg/dL Urine Occult Blood (NEGATIVE) Urine Nitrite (NEGATIVE) Urine Bilirubin (NEGATIVE) Urine Ictotest Urine Urobilinogen (<2.0) EU/dL Ur Leukocyte Esterase (NEGATIVE) Urine RBC (0-2/HPF) Urine WBC (0-5/HPF) Ur Epithelial Cells (NONE-FEW) Urine Bacteria (NEGATIVE) Urine Mucus (NONE-MOD) Urine Opiates Screen (NEGATIVE) Ur Oxycodone Screen (NEGATIVE) Urine Methadone Screen (NEGATIVE) Ur Barbiturates Screen (NEGATIVE) Ur Phencyclidine Scrn (NEGATIVE) Ur Amphetamine Screen (NEGATIVE) U Methamphetamines Scrn (NEGATIVE) U Benzodiazepines Scrn (NEGATIVE) U Cocaine Metab Screen (NEGATIVE) U Marijuana (THC) Screen (NEGATIVE) Ethyl Alcohol mg/dL 05/26/19 05/26/19 05/26/19 Range/Units 16:37 17:00 18:00 WBC (4.0-11.0) K/uL RBC (4.50-5.90) M/uL Hgb (13.0-17.0) g/dL Hct (38.0-50.0) % MCV (80.0-98.0) fL MCH (27.0-32.0) pg MCHC (31.0-37.0) g/dL RDW Std Deviation (28.0-62.0) fl RDW Coeff of Imer (11.0-15.0) % Plt Count (150-400) K/uL MPV (7.40-12.00) fL Neut % (Auto) (48.0-80.0) % Lymph % (Auto) (16.0-40.0) % Gaston % (Auto) (0.0-15.0) % Eos % (Auto) (0.0-7.0) % Baso % (Auto) (0.0-1.5) % Neut # (Auto) (1.4-5.7) K/uL Lymph # (Auto) (0.6-2.4) K/uL Gaston # (Auto) (0.0-0.8) K/uL Eos # (Auto) (0.0-0.7) K/uL Baso # (Auto) (0.0-0.1) K/uL Nucleated RBC % /100WBC Nucleated RBCs # K/uL INR ABG pH 7.520 H (7.35-7.45) ABG pCO2 35 (35-45) mmHG ABG pO2 77 (75-100) mmHG ABG HCO3 28 H (22-26) mEq/L ABG Total CO2 25.6 ABG Base Excess 5.4 H (-2.0-2.0) Lactate (0.20-2.00) mmol/L Sodium (136-148) mmol/L Potassium (3.5-5.1) mmol/L Chloride (98-107) mmol/L Carbon Dioxide (21.0-32.0) mmol/L BUN (7.0-18.0) mg/dL Creatinine (0.8-1.3) mg/dL Est Cr Clr Drug Dosing mL/min Estimated GFR (MDRD) ml/min Glucose (74-106) mg/dL Hemoglobin A1c (4.5-6.2) % Calcium (8.5-10.1) mg/dL Phosphorus (2.6-4.7) mg/dL Magnesium 1.5 L (1.8-2.4) mg/dL Total Bilirubin (0.2-1.0) mg/dL AST (15-37) IU/L ALT (14-63) IU/L Alkaline Phosphatase (46-116) U/L Ammonia (19-54) ug/dL Troponin I (0.000-0.056) ng/mL Total Protein (6.4-8.2) g/dL Albumin (3.4-5.0) g/dL Globulin (2.6-4.0) g/dL Albumin/Globulin Ratio (0.9-1.6) Triglycerides (0-200) mg/dL Cholesterol (50-200) mg/dL LDL Cholesterol, Calc (60-180) mg/dL VLDL Cholesterol (5-55) mg/dL HDL Cholesterol (40-60) mg/dL Cholesterol/HDL Ratio (3.3-6.0) Lipase (73-393) U/L TSH 3rd Generation (0.36-3.74) uIU/mL Urine Color ORANGE Urine Appearance CLEAR Urine pH 7.0 (5.0-8.0) Ur Specific Franklin 1.010 (1.001-1.035) Urine Protein TRACE H (NEGATIVE) mg/dL Urine Glucose (UA) NEGATIVE (NEGATIVE) mg/dL Urine Ketones 15 H (NEGATIVE) mg/dL Urine Occult Blood NEGATIVE (NEGATIVE) Urine Nitrite POSITIVE H (NEGATIVE) Urine Bilirubin MODERATE H (NEGATIVE) Urine Ictotest NEGATIVE Urine Urobilinogen >=8.0 H (<2.0) EU/dL Ur Leukocyte Esterase NEGATIVE (NEGATIVE) Urine RBC 0-2 (0-2/HPF) Urine WBC 0-1 (0-5/HPF) Ur Epithelial Cells RARE (NONE-FEW) Urine Bacteria FEW (NEGATIVE) Urine Mucus LIGHT (NONE-MOD) Urine Opiates Screen (NEGATIVE) Ur Oxycodone Screen (NEGATIVE) Urine Methadone Screen (NEGATIVE) Ur Barbiturates Screen (NEGATIVE) Ur Phencyclidine Scrn (NEGATIVE) Ur Amphetamine Screen (NEGATIVE) U Methamphetamines Scrn (NEGATIVE) U Benzodiazepines Scrn (NEGATIVE) U Cocaine Metab Screen (NEGATIVE) U Marijuana (THC) Screen (NEGATIVE) Ethyl Alcohol mg/dL 05/26/19 05/26/19 05/26/19 Range/Units 18:00 22:37 22:37 WBC (4.0-11.0) K/uL RBC (4.50-5.90) M/uL Hgb (13.0-17.0) g/dL Hct (38.0-50.0) % MCV (80.0-98.0) fL MCH (27.0-32.0) pg MCHC (31.0-37.0) g/dL RDW Std Deviation (28.0-62.0) fl RDW Coeff of Imer (11.0-15.0) % Plt Count (150-400) K/uL MPV (7.40-12.00) fL Neut % (Auto) (48.0-80.0) % Lymph % (Auto) (16.0-40.0) % Gaston % (Auto) (0.0-15.0) % Eos % (Auto) (0.0-7.0) % Baso % (Auto) (0.0-1.5) % Neut # (Auto) (1.4-5.7) K/uL Lymph # (Auto) (0.6-2.4) K/uL Gaston # (Auto) (0.0-0.8) K/uL Eos # (Auto) (0.0-0.7) K/uL Baso # (Auto) (0.0-0.1) K/uL Nucleated RBC % /100WBC Nucleated RBCs # K/uL INR ABG pH (7.35-7.45) ABG pCO2 (35-45) mmHG ABG pO2 (75-100) mmHG ABG HCO3 (22-26) mEq/L ABG Total CO2 ABG Base Excess (-2.0-2.0) Lactate 1.1 (0.20-2.00) mmol/L Sodium (136-148) mmol/L Potassium (3.5-5.1) mmol/L Chloride (98-107) mmol/L Carbon Dioxide (21.0-32.0) mmol/L BUN (7.0-18.0) mg/dL Creatinine (0.8-1.3) mg/dL Est Cr Clr Drug Dosing mL/min Estimated GFR (MDRD) ml/min Glucose (74-106) mg/dL Hemoglobin A1c (4.5-6.2) % Calcium (8.5-10.1) mg/dL Phosphorus (2.6-4.7) mg/dL Magnesium (1.8-2.4) mg/dL Total Bilirubin (0.2-1.0) mg/dL AST (15-37) IU/L ALT (14-63) IU/L Alkaline Phosphatase (46-116) U/L Ammonia (19-54) ug/dL Troponin I < 0.050 (0.000-0.056) ng/mL Total Protein (6.4-8.2) g/dL Albumin (3.4-5.0) g/dL Globulin (2.6-4.0) g/dL Albumin/Globulin Ratio (0.9-1.6) Triglycerides (0-200) mg/dL Cholesterol (50-200) mg/dL LDL Cholesterol, Calc (60-180) mg/dL VLDL Cholesterol (5-55) mg/dL HDL Cholesterol (40-60) mg/dL Cholesterol/HDL Ratio (3.3-6.0) Lipase (73-393) U/L TSH 3rd Generation (0.36-3.74) uIU/mL Urine Color Urine Appearance Urine pH (5.0-8.0) Ur Specific Franklin (1.001-1.035) Urine Protein (NEGATIVE) mg/dL Urine Glucose (UA) (NEGATIVE) mg/dL Urine Ketones (NEGATIVE) mg/dL Urine Occult Blood (NEGATIVE) Urine Nitrite (NEGATIVE) Urine Bilirubin (NEGATIVE) Urine Ictotest Urine Urobilinogen (<2.0) EU/dL Ur Leukocyte Esterase (NEGATIVE) Urine RBC (0-2/HPF) Urine WBC (0-5/HPF) Ur Epithelial Cells (NONE-FEW) Urine Bacteria (NEGATIVE) Urine Mucus (NONE-MOD) Urine Opiates Screen NEGATIVE (NEGATIVE) Ur Oxycodone Screen NEGATIVE (NEGATIVE) Urine Methadone Screen NEGATIVE (NEGATIVE) Ur Barbiturates Screen NEGATIVE (NEGATIVE) Ur Phencyclidine Scrn NEGATIVE (NEGATIVE) Ur Amphetamine Screen NEGATIVE (NEGATIVE) U Methamphetamines Scrn NEGATIVE (NEGATIVE) U Benzodiazepines Scrn NEGATIVE (NEGATIVE) U Cocaine Metab Screen NEGATIVE (NEGATIVE) U Marijuana (THC) Screen NEGATIVE (NEGATIVE) Ethyl Alcohol mg/dL 05/27/19 05/27/19 05/27/19 Range/Units 06:20 06:20 06:20 WBC 5.44 (4.0-11.0) K/uL RBC 2.99 L (4.50-5.90) M/uL Hgb 10.0 L (13.0-17.0) g/dL Hct 30.0 L (38.0-50.0) % MCV 100.3 H (80.0-98.0) fL MCH 33.4 H (27.0-32.0) pg MCHC 33.3 (31.0-37.0) g/dL RDW Std Deviation 52.6 (28.0-62.0) fl RDW Coeff of Imer 15 (11.0-15.0) % Plt Count 175 (150-400) K/uL MPV 9.10 (7.40-12.00) fL Neut % (Auto) 61.6 (48.0-80.0) % Lymph % (Auto) 23.7 (16.0-40.0) % Gaston % (Auto) 13.2 (0.0-15.0) % Eos % (Auto) 1.1 (0.0-7.0) % Baso % (Auto) 0.4 (0.0-1.5) % Neut # (Auto) 3.4 (1.4-5.7) K/uL Lymph # (Auto) 1.3 (0.6-2.4) K/uL Gaston # (Auto) 0.7 (0.0-0.8) K/uL Eos # (Auto) 0.1 (0.0-0.7) K/uL Baso # (Auto) 0.0 (0.0-0.1) K/uL Nucleated RBC % 0.0 /100WBC Nucleated RBCs # 0 K/uL INR ABG pH (7.35-7.45) ABG pCO2 (35-45) mmHG ABG pO2 (75-100) mmHG ABG HCO3 (22-26) mEq/L ABG Total CO2 ABG Base Excess (-2.0-2.0) Lactate (0.20-2.00) mmol/L Sodium 143 (136-148) mmol/L Potassium 2.7 L (3.5-5.1) mmol/L Chloride 105 (98-107) mmol/L Carbon Dioxide 23.9 (21.0-32.0) mmol/L BUN 14 (7.0-18.0) mg/dL Creatinine 0.6 L (0.8-1.3) mg/dL Est Cr Clr Drug Dosing 137.75 mL/min Estimated GFR (MDRD) > 60.0 ml/min Glucose 70 L (74-106) mg/dL Hemoglobin A1c 5.4 (4.5-6.2) % Calcium 7.6 L (8.5-10.1) mg/dL Phosphorus (2.6-4.7) mg/dL Magnesium (1.8-2.4) mg/dL Total Bilirubin 0.9 (0.2-1.0) mg/dL AST 78 H (15-37) IU/L ALT 64 H (14-63) IU/L Alkaline Phosphatase 70 (46-116) U/L Ammonia (19-54) ug/dL Troponin I (0.000-0.056) ng/mL Total Protein 5.8 L (6.4-8.2) g/dL Albumin 2.7 L (3.4-5.0) g/dL Globulin 3.1 (2.6-4.0) g/dL Albumin/Globulin Ratio 0.9 (0.9-1.6) Triglycerides 173 (0-200) mg/dL Cholesterol 204 H (50-200) mg/dL LDL Cholesterol, Calc 139 (60-180) mg/dL VLDL Cholesterol 34 (5-55) mg/dL HDL Cholesterol 30 L (40-60) mg/dL Cholesterol/HDL Ratio 6.8 H (3.3-6.0) Lipase (73-393) U/L TSH 3rd Generation 1.49 (0.36-3.74) uIU/mL Urine Color Urine Appearance Urine pH (5.0-8.0) Ur Specific Franklin (1.001-1.035) Urine Protein (NEGATIVE) mg/dL Urine Glucose (UA) (NEGATIVE) mg/dL Urine Ketones (NEGATIVE) mg/dL Urine Occult Blood (NEGATIVE) Urine Nitrite (NEGATIVE) Urine Bilirubin (NEGATIVE) Urine Ictotest Urine Urobilinogen (<2.0) EU/dL Ur Leukocyte Esterase (NEGATIVE) Urine RBC (0-2/HPF) Urine WBC (0-5/HPF) Ur Epithelial Cells (NONE-FEW) Urine Bacteria (NEGATIVE) Urine Mucus (NONE-MOD) Urine Opiates Screen (NEGATIVE) Ur Oxycodone Screen (NEGATIVE) Urine Methadone Screen (NEGATIVE) Ur Barbiturates Screen (NEGATIVE) Ur Phencyclidine Scrn (NEGATIVE) Ur Amphetamine Screen (NEGATIVE) U Methamphetamines Scrn (NEGATIVE) U Benzodiazepines Scrn (NEGATIVE) U Cocaine Metab Screen (NEGATIVE) U Marijuana (THC) Screen (NEGATIVE) Ethyl Alcohol mg/dL 05/27/19 Range/Units 06:20 WBC (4.0-11.0) K/uL RBC (4.50-5.90) M/uL Hgb (13.0-17.0) g/dL Hct (38.0-50.0) % MCV (80.0-98.0) fL MCH (27.0-32.0) pg MCHC (31.0-37.0) g/dL RDW Std Deviation (28.0-62.0) fl RDW Coeff of Imer (11.0-15.0) % Plt Count (150-400) K/uL MPV (7.40-12.00) fL Neut % (Auto) (48.0-80.0) % Lymph % (Auto) (16.0-40.0) % Gaston % (Auto) (0.0-15.0) % Eos % (Auto) (0.0-7.0) % Baso % (Auto) (0.0-1.5) % Neut # (Auto) (1.4-5.7) K/uL Lymph # (Auto) (0.6-2.4) K/uL Gaston # (Auto) (0.0-0.8) K/uL Eos # (Auto) (0.0-0.7) K/uL Baso # (Auto) (0.0-0.1) K/uL Nucleated RBC % /100WBC Nucleated RBCs # K/uL INR ABG pH (7.35-7.45) ABG pCO2 (35-45) mmHG ABG pO2 (75-100) mmHG ABG HCO3 (22-26) mEq/L ABG Total CO2 ABG Base Excess (-2.0-2.0) Lactate (0.20-2.00) mmol/L Sodium (136-148) mmol/L Potassium (3.5-5.1) mmol/L Chloride (98-107) mmol/L Carbon Dioxide (21.0-32.0) mmol/L BUN (7.0-18.0) mg/dL Creatinine (0.8-1.3) mg/dL Est Cr Clr Drug Dosing mL/min Estimated GFR (MDRD) ml/min Glucose (74-106) mg/dL Hemoglobin A1c (4.5-6.2) % Calcium (8.5-10.1) mg/dL Phosphorus (2.6-4.7) mg/dL Magnesium 1.9 (1.8-2.4) mg/dL Total Bilirubin (0.2-1.0) mg/dL AST (15-37) IU/L ALT (14-63) IU/L Alkaline Phosphatase (46-116) U/L Ammonia (19-54) ug/dL Troponin I (0.000-0.056) ng/mL Total Protein (6.4-8.2) g/dL Albumin (3.4-5.0) g/dL Globulin (2.6-4.0) g/dL Albumin/Globulin Ratio (0.9-1.6) Triglycerides (0-200) mg/dL Cholesterol (50-200) mg/dL LDL Cholesterol, Calc (60-180) mg/dL VLDL Cholesterol (5-55) mg/dL HDL Cholesterol (40-60) mg/dL Cholesterol/HDL Ratio (3.3-6.0) Lipase (73-393) U/L TSH 3rd Generation (0.36-3.74) uIU/mL Urine Color Urine Appearance Urine pH (5.0-8.0) Ur Specific Franklin (1.001-1.035) Urine Protein (NEGATIVE) mg/dL Urine Glucose (UA) (NEGATIVE) mg/dL Urine Ketones (NEGATIVE) mg/dL Urine Occult Blood (NEGATIVE) Urine Nitrite (NEGATIVE) Urine Bilirubin (NEGATIVE) Urine Ictotest Urine Urobilinogen (<2.0) EU/dL Ur Leukocyte Esterase (NEGATIVE) Urine RBC (0-2/HPF) Urine WBC (0-5/HPF) Ur Epithelial Cells (NONE-FEW) Urine Bacteria (NEGATIVE) Urine Mucus (NONE-MOD) Urine Opiates Screen (NEGATIVE) Ur Oxycodone Screen (NEGATIVE) Urine Methadone Screen (NEGATIVE) Ur Barbiturates Screen (NEGATIVE) Ur Phencyclidine Scrn (NEGATIVE) Ur Amphetamine Screen (NEGATIVE) U Methamphetamines Scrn (NEGATIVE) U Benzodiazepines Scrn (NEGATIVE) U Cocaine Metab Screen (NEGATIVE) U Marijuana (THC) Screen (NEGATIVE) Ethyl Alcohol mg/dL Med Orders - Current: Current Medications Acetaminophen (Tylenol) 650 mg PO Q4H PRN PRN Reason: Pain (Mild 1-3)/fever Amlodipine Besylate (Norvasc) 5 mg PO DAILY [facility] Last Admin: 05/27/19 11:04 Dose: 5 mg Enoxaparin Sodium (Lovenox) 40 mg SUBCUT Q24H [facility] Last Admin: 05/26/19 21:03 Dose: 40 mg Folic Acid (Folic Acid) 1 mg PO BEDTIME KAYLI Sodium Chloride (Normal Saline) 1,000 mls @ 100 mls/hr IV STAT [facility] Last Admin: 05/27/19 04:13 Dose: 100 mls/hr Ceftriaxone Sodium/Dextrose 1 (gm/ Premix) 50 mls @ 100 mls/hr IV Q24H [facility] Last Admin: 05/26/19 21:38 Dose: 100 mls/hr Potassium Chloride 40 meq/ (Sodium Chloride) 270 mls @ 67.5 mls/hr IV ONETIME ONE Stop: 05/27/19 14:29 Last Admin: 05/27/19 11:00 Dose: 67.5 mls/hr Labetalol HCl (Normodyne) 10 mg IVPUSH ONETIME PRN; Protocol PRN Reason: Other Lorazepam (Ativan) 0 mg PO Q6H PRN; Protocol PRN Reason: Agitation Nicotine (Habitrol) 14 mg TRDERM DAILY [facility] Last Admin: 05/27/19 10:05 Dose: Not Given Ondansetron HCl (Zofran Odt) 4 mg PO Q4H PRN PRN Reason: nausea, able to take PO Ondansetron HCl (Zofran) 4 mg IVPUSH Q4H PRN PRN Reason: Nausea Thiamine HCl (Vitamin B-1) 100 mg PO BEDTIME [facility] Discontinued Medications Folic Acid (Folic Acid) 1 mg PO BEDTIME KAYLI Sodium Chloride (Normal Saline) 1,000 mls @ 999 mls/hr IV STAT ONE Stop: 05/26/19 17:35 Last Admin: 05/26/19 16:41 Dose: 999 mls/hr Multivitamins/Minerals 10 ml/Thiamine HCl 100 mg/ Folic Acid 1 mg/ Sodium Chloride 1,011.2 mls @ 999 mls/hr IV STAT ONE Stop: 05/26/19 18:39 Last Admin: 05/26/19 18:20 Dose: 999 mls/hr Potassium Chloride 40 meq/ (Premix) 100 mls @ 25 mls/hr IV ONETIME ONE Stop: 05/26/19 21:39 Last Admin: 05/26/19 18:20 Dose: 25 mls/hr Sodium Chloride (Normal Saline) 1,000 mls @ 150 mls/hr IV STAT KAYLI Last Infusion: 05/26/19 18:24 Dose: 100 mls/hr Magnesium Sulfate 2 gm/ Premix 50 mls @ 25 mls/hr IV ONETIME ONE Stop: 05/26/19 20:41 Last Admin: 05/26/19 22:21 Dose: 25 mls/hr Potassium Chloride (Klor-Con M20) 40 meq PO ONETIME ONE Stop: 05/26/19 18:49 Last Admin: 05/26/19 20:52 Dose: 40 meq Thiamine HCl (Vitamin B-1) 100 mg PO BEDTIME KAYLI - Exam General: Alert, Oriented, Cooperative, No Acute Distress, Other HEENT: Pupils Equal Neck: Supple Lungs: Clear to Auscultation, Normal Respiratory Effort Cardiovascular: Regular Rate, Regular Rhythm GI/Abdominal Exam: Normal Bowel Sounds, Soft, Non-Tender Peripheral Pulses: 3+: Dorsalis Pedis (L), Dorsalis Pedis (R) Skin: Warm, Dry Psy/Mental Status: Alert, Other (flat affect ). No: Normal Affect - Problem List & Annotations (1) Fall SNOMED Code(s): 4284431, 572458052 Code(s): W19.XXXA - UNSPECIFIED FALL, INITIAL ENCOUNTER Status: Acute Current Visit: Yes (2) Hypertension SNOMED Code(s): 19443334 Code(s): I10 - ESSENTIAL (PRIMARY) HYPERTENSION Status: Acute Current Visit: Yes (3) Hypokalemia SNOMED Code(s): 50029084 Code(s): E87.6 - HYPOKALEMIA Status: Acute Current Visit: Yes (4) Lactic acidemia SNOMED Code(s): 277739945 Code(s): E87.2 - ACIDOSIS Status: Acute Current Visit: Yes (5) Mental status alteration SNOMED Code(s): 968810154 Code(s): R41.82 - ALTERED MENTAL STATUS, UNSPECIFIED Status: Acute Current Visit: Yes - Problem List Review Problem List Initiated/Reviewed/Updated: Yes - My Orders Last 24 Hours: My Active Orders 05/26/19 23:45 Nicotine [Habitrol] 14 mg TRDERM DAILY 05/27/19 10:28 Consult to Physical Therapy [PT Evaluation and Treatment] [CONS] Routine 05/27/19 10:30 Communication Order [RC] PRN Potassium Chloride 40 meq Sodium Chloride 0.9% [Normal Saline] 250 ml IV ONETIME 05/27/19 10:45 amLODIPine [Norvasc] 5 mg PO DAILY - Plan Plan:: Assessment and Plan: 53 y/o M comes in with change in mental status , CT Head negative Mental status improved but still has very flat affect and slow to respond Per family, there is family history of Alzheimer Cont IV ceftriaxone for UTI, could be reason for his change in mentation vs dementia Monitor and replete electrolytes HTN controlled currently [facility] protocol for alcohol withdrawal PT for assessment of safe ambulation as gait is unstable cont folic acid, and thiamine Needs outpatient neurology follow up
[2019-05-27] MEDS: cefTRIAXone 1 GM in Premix Bag 1 BAG IV SCH (19:07)
[2019-05-27] MEDS: Enoxaparin 40 MG/0.4 ML Syringe SUBCUT SCH (19:48)
[2019-05-27] MEDS: Thiamine 100 MG Tab PO SCH (20:01)
[2019-05-27] MEDS: Folic Acid 1 MG Tab PO SCH (20:01)
[2019-05-28] MEDS: Sodium Chloride 0.9% 1,000 ML IV SCH (03:59)
[2019-05-28 06:28] LABS: BLOOD UREA NITROGEN,BUN 9 mg/dL (7.0-18.0); CARBON DIOXIDE,CO2 24.5 mmol/L (21.0-32.0); CHLORIDE,CL 102 mmol/L (98-107); GLUCOSE RANDOM 86 mg/dL (74-106); POTASSIUM,K 2.7 mmol/L (3.5-5.1); SODIUM,NA 138 mmol/L (136-148)
[2019-05-28] MEDS ORDERED: Potassium Chloride 20 MEQ Tab.ER PO ONE (08:07)
[2019-05-28] MEDS ORDERED: Magnesium Sulfate 4 GM in Sodium Chloride 0.9% with KCl 1,000 ML IV SCH (08:15)
[2019-05-28] MEDS: amLODIPine 5 MG Tab PO SCH (09:04)
--- NOTE | 2019-05-28 09:21 | PCM.PN ---
- General Info Date of Service: 05/28/19 Admission Dx/Problem (Free Text): Admission Diagnosis/Problem Admission Diagnosis/Problem Hypokalemia, confusion Subjective Update: Intermittent confusion noted, seems with different staff he answers questions different. Alert and oriented x 2 with me, knows where he is (hospital), not town and knows himself. No pain. No abdominal pain. Denies any concerns this morning. Discussed alcohol cessation and malnutrition and the need for improvement of nutrition status. Functional Status: Reports: Pain Controlled, Tolerating Diet, Ambulating - Review of Systems General: Reports: Weakness (generalized) HEENT: Reports: No Symptoms. Denies: Headaches, Sore Throat, Visual Changes Pulmonary: Reports: No Symptoms. Denies: Shortness of Breath Cardiovascular: Reports: No Symptoms. Denies: Chest Pain Gastrointestinal: Reports: No Symptoms. Denies: Abdominal Pain, Nausea, Vomiting Genitourinary: Reports: No Symptoms Musculoskeletal: Reports: No Symptoms Skin: Reports: No Symptoms Neurological: Reports: No Symptoms Psychiatric: Reports: No Symptoms - Patient Data Vitals - Most Recent: Last Vital Signs Temp 97.4 F 05/28/19 04:00 Pulse 82 05/28/19 04:00 Resp 17 05/28/19 04:00 BP 163/102 H 05/28/19 09:04 Pulse Ox 99 05/28/19 04:00 Weight - Most Recent: 68.4 kg I&O - Last 24 Hours: Intake & Output 05/27/19 05/28/19 05/28/19 22:59 06:59 14:59 Intake Total 1353 2650 Balance 1353 2650 Lab Results Last 24 Hours: Laboratory Results - last 24 hr 05/27/19 05/28/19 05/28/19 Range/Units 06:20 05:35 05:35 WBC 5.09 (4.0-11.0) K/uL RBC 2.84 L (4.50-5.90) M/uL Hgb 9.5 L (13.0-17.0) g/dL Hct 28.5 L (38.0-50.0) % MCV 100.4 H (80.0-98.0) fL MCH 33.5 H (27.0-32.0) pg MCHC 33.3 (31.0-37.0) g/dL RDW Std Deviation 52.0 (28.0-62.0) fl RDW Coeff of Imer 14 (11.0-15.0) % Plt Count 185 (150-400) K/uL MPV 9.50 (7.40-12.00) fL Neut % (Auto) 56.4 (48.0-80.0) % Lymph % (Auto) 25.9 (16.0-40.0) % [place] % (Auto) 16.1 H (0.0-15.0) % Eos % (Auto) 1.2 (0.0-7.0) % Baso % (Auto) 0.4 (0.0-1.5) % Neut # (Auto) 2.9 (1.4-5.7) K/uL Lymph # (Auto) 1.3 (0.6-2.4) K/uL [place] # (Auto) 0.8 (0.0-0.8) K/uL Eos # (Auto) 0.1 (0.0-0.7) K/uL Baso # (Auto) 0.0 (0.0-0.1) K/uL Nucleated RBC % 0.0 /100WBC Nucleated RBCs # 0 K/uL Sodium 138 (136-148) mmol/L Potassium 2.7 L (3.5-5.1) mmol/L Chloride 102 (98-107) mmol/L Carbon Dioxide 24.5 (21.0-32.0) mmol/L BUN 9 (7.0-18.0) mg/dL Creatinine 0.6 L (0.8-1.3) mg/dL Est Cr Clr Drug Dosing 137.75 mL/min Estimated GFR (MDRD) > 60.0 ml/min Glucose 86 (74-106) mg/dL Calcium 7.3 L (8.5-10.1) mg/dL Phosphorus 3.2 (2.6-4.7) mg/dL Magnesium 1.9 1.3 L (1.8-2.4) mg/dL Total Bilirubin 0.6 (0.2-1.0) mg/dL AST 46 H (15-37) IU/L ALT 48 (14-63) IU/L Alkaline Phosphatase 67 (46-116) U/L Total Protein 5.4 L (6.4-8.2) g/dL Albumin 2.6 L (3.4-5.0) g/dL Globulin 2.8 (2.6-4.0) g/dL Albumin/Globulin Ratio 0.9 (0.9-1.6) Willie Results Last 24 Hours: Microbiology 05/26/19 16:55 Aerobic Blood Culture - Preliminary Blood - Venous - Lab Draw NO GROWTH AFTER 1 DAY Anaerobic Blood Culture - Preliminary NO GROWTH AFTER 1 DAY 05/26/19 16:32 Aerobic Blood Culture - Preliminary Blood - Venous NO GROWTH AFTER 1 DAY Anaerobic Blood Culture - Preliminary NO GROWTH AFTER 1 DAY Med Orders - Current: Current Medications Acetaminophen (Tylenol) 650 mg PO Q4H PRN PRN Reason: Pain (Mild 1-3)/fever Amlodipine Besylate (Norvasc) 5 mg PO DAILY [facility] Last Admin: 05/28/19 09:04 Dose: 5 mg Enoxaparin Sodium (Lovenox) 40 mg SUBCUT Q24H [facility] Last Admin: 05/27/19 19:48 Dose: 40 mg Folic Acid (Folic Acid) 1 mg PO BEDTIME [facility] Last Admin: 05/27/19 20:01 Dose: 1 mg Ceftriaxone Sodium/Dextrose 1 (gm/ Premix) 50 mls @ 100 mls/hr IV Q24H [facility] Last Admin: 05/27/19 19:07 Dose: 100 mls/hr Magnesium Sulfate 4 gm/Potassium Chloride/Sodium Chloride 1,008 mls @ 150 mls/ hr IV ASDIRECTED [facility] Stop: 05/28/19 14:54 Last Admin: 05/28/19 08:33 Dose: 150 mls/hr Labetalol HCl (Normodyne) 10 mg IVPUSH ONETIME PRN; Protocol PRN Reason: Other Lorazepam (Ativan) 0 mg PO Q6H PRN; Protocol PRN Reason: Agitation Nicotine (Habitrol) 14 mg TRDERM DAILY [facility] Last Admin: 05/27/19 10:05 Dose: Not Given Ondansetron HCl (Zofran Odt) 4 mg PO Q4H PRN PRN Reason: nausea, able to take PO Ondansetron HCl (Zofran) 4 mg IVPUSH Q4H PRN PRN Reason: Nausea Thiamine HCl (Vitamin B-1) 100 mg PO BEDTIME [facility] Last Admin: 05/27/19 20:01 Dose: 100 mg Discontinued Medications Folic Acid (Folic Acid) 1 mg PO BEDTIME [facility] Sodium Chloride (Normal Saline) 1,000 mls @ 999 mls/hr IV STAT ONE Stop: 05/26/19 17:35 Last Admin: 05/26/19 16:41 Dose: 999 mls/hr Multivitamins/Minerals 10 ml/Thiamine HCl 100 mg/ Folic Acid 1 mg/ Sodium Chloride 1,011.2 mls @ 999 mls/hr IV STAT ONE Stop: 05/26/19 18:39 Last Admin: 05/26/19 18:20 Dose: 999 mls/hr Potassium Chloride 40 meq/ (Premix) 100 mls @ 25 mls/hr IV ONETIME ONE Stop: 05/26/19 21:39 Last Admin: 05/26/19 18:20 Dose: 25 mls/hr Sodium Chloride (Normal Saline) 1,000 mls @ 150 mls/hr IV STAT [facility] Last Infusion: 05/26/19 18:24 Dose: 100 mls/hr Magnesium Sulfate 2 gm/ Premix 50 mls @ 25 mls/hr IV ONETIME ONE Stop: 05/26/19 20:41 Last Admin: 05/26/19 22:21 Dose: 25 mls/hr Sodium Chloride (Normal Saline) 1,000 mls @ 100 mls/hr IV STAT [facility] Last Admin: 05/28/19 03:59 Dose: 100 mls/hr Potassium Chloride 40 meq/ (Sodium Chloride) 270 mls @ 67.5 mls/hr IV ONETIME ONE Stop: 05/27/19 14:29 Last Admin: 05/27/19 11:00 Dose: 67.5 mls/hr Potassium Chloride (Klor-Con M20) 40 meq PO ONETIME ONE Stop: 05/26/19 18:49 Last Admin: 05/26/19 20:52 Dose: 40 meq Potassium Chloride (Klor-Con M20) 40 meq PO ONETIME ONE Stop: 05/28/19 08:08 Last Admin: 05/28/19 08:59 Dose: 40 meq Thiamine HCl (Vitamin B-1) 100 mg PO BEDTIME [facility] - Exam General: Alert, Cooperative, No Acute Distress. No: Oriented Lungs: Clear to Auscultation, Normal Respiratory Effort Cardiovascular: Regular Rate, Regular Rhythm GI/Abdominal Exam: Normal Bowel Sounds, Soft, Non-Tender Extremities: Normal Inspection, Normal Range of Motion, Non-Tender, No Pedal Edema Neurological: No New Focal Deficit, Other (mid confusion continues) Psy/Mental Status: Alert, Normal Affect, Normal Mood - Problem List & Annotations (1) Malnutrition SNOMED Code(s): 45166860 Code(s): E46 - UNSPECIFIED PROTEIN-CALORIE MALNUTRITION Status: Acute Current Visit: Yes (2) Protein calorie malnutrition SNOMED Code(s): 818125463 Code(s): E46 - UNSPECIFIED PROTEIN-CALORIE MALNUTRITION Status: Acute Current Visit: Yes (3) Hypertension SNOMED Code(s): 32882904 Code(s): I10 - ESSENTIAL (PRIMARY) HYPERTENSION Status: Acute Current Visit: Yes (4) Hypokalemia SNOMED Code(s): 89870385 Code(s): E87.6 - HYPOKALEMIA Status: Acute Current Visit: Yes (5) Mental status alteration SNOMED Code(s): 665318994 Code(s): R41.82 - ALTERED MENTAL STATUS, UNSPECIFIED Status: Acute Current Visit: Yes (6) Alcohol abuse SNOMED Code(s): 01199646 Code(s): F10.10 - ALCOHOL ABUSE, UNCOMPLICATED Status: Acute Current Visit: Yes - Problem List Review Problem List Initiated/Reviewed/Updated: Yes - My Orders Last 24 Hours: My Active Orders 05/28/19 08:15 Magnesium Sulfate [Magnesium Sulfate 50%] 4 gm Sodium Chloride 0.9% with KCl [ Normal Saline with 40 mEq KCl] 1,000 ml IV ASDIRECTED 05/28/19 14:30 POTASSIUM,K [CHEM] Routine - Plan Plan:: This 53 year old male admitted with AMS and hypokalemia 1. AMS: Steadily improving. noted to have UTI. Treating electrolyte abnormalities. Flat affect and slow response noted. Obtain MRI of brain. Consider Alzhiemers or dementia. Follow up with Neurology as outpatient. PT for eval and treat 2. UTI: Continue Rocephin, UC mixed peggy. 3. Malnutrition: likely secondary to alcohol abuse and inappropriate diet. Consult tank car reconditioner. 4. Electrolyte abnormalities: Replace K today with 40 PO and 40 IV KCL. Replace Magnesium as well, 4 gm IV. Monitor Phosphorus daily. 5. HTN: Continue Amlodipine, consider increasing in BP continues to be elevated. 6. Alcohol abuse: CIWAA scale. Supplement with Thiamine and folic acid. VTE prophylaxis: SCDs Dispo: 1-2 days.
[2019-05-28] MEDS: Nicotine 14 MG/24 Hr Patch TRDERM SCH (10:36)
[2019-05-28] MEDS ORDERED: amLODIPine 5 MG Tab PO ONE (12:50)
[2019-05-28] MEDS ORDERED: Gadobenate Dimeglumine 529 MG/ML 20 ML SDV IVPUSH STA (13:41)
--- NOTE | 2019-05-28 14:47 | MR ---
INDICATION: 53-year-old male. Confusion. TECHNIQUE: Sagittal T1 axial FLAIR T2 axial and coronal T1 and axial diffusion weighted images. COMPARISON: CT brain 05/26/2019. FINDINGS: The ventricles and subarachnoid spaces are prominent for age due to volume loss. There is no diffusion restriction to suggest acute ischemic infarction. There are focal areas of FLAIR and T2 hyperintensity within the supratentorial white matter that predominate in frontal lobes and associated with volume loss. The appearance nonspecific but may relate to chronic microvascular ischemia or sequela of old inflammation. No focal lesion in the brainstem or cerebellum the orbits sella and skull base are unremarkable. IMPRESSION: 1. No evidence of acute ischemic infarction intracranial hemorrhage or mass. 2. Cerebral and cerebellar volume loss. 3. Focal areas of signal abnormality within the deep bilateral frontal lobe white matter are nonspecific but may relate to prior vascular ischemic insult or sequela of old inflammation. Dictated by Reji Carrillo MD @ May 28 2019 2:42PM Signed by Dr. Reji Carrillo @ May 28 2019 2:46PM
[2019-05-28] MEDS: cefTRIAXone 1 GM in Premix Bag 1 BAG IV SCH (19:11)
[2019-05-28] MEDS: Thiamine 100 MG Tab PO SCH (20:45)
[2019-05-28] MEDS: Folic Acid 1 MG Tab PO SCH (20:45)
[2019-05-28] MEDS: Enoxaparin 40 MG/0.4 ML Syringe SUBCUT SCH (20:46)
[2019-05-29 05:53] LABS: BLOOD UREA NITROGEN,BUN 6 mg/dL (7.0-18.0); CARBON DIOXIDE,CO2 24.9 mmol/L (21.0-32.0); CHLORIDE,CL 102 mmol/L (98-107); GLUCOSE RANDOM 87 mg/dL (74-106); POTASSIUM,K 3.2 mmol/L (3.5-5.1); SODIUM,NA 136 mmol/L (136-148)
[2019-05-29] MEDS ORDERED: Magnesium Sulfate/Water 2 GM in Premix Bag 1 BAG IV ONE (07:55)
[2019-05-29] MEDS ORDERED: Potassium Chloride 20 MEQ Tab.ER PO ONE (07:55)
[2019-05-29] MEDS: Nicotine 14 MG/24 Hr Patch TRDERM SCH (08:24)
[2019-05-29] MEDS ORDERED: amLODIPine 5 MG Tab PO SCH ×2 (09:00)
[2019-05-29] MEDS ORDERED: Potassium Chloride 10% 20 MEQ/15 ML Soln 30 ML UD Cup PO ONE (09:00)
--- NOTE | 2019-05-29 10:56 | PCM.DCSUM1 ---
Discharge Summary - Hospital Course Brief History: 53-year-old male presented to ER via EMS with generalized weakness and confusion. He reports no past medical history. Patient reports that he was sitting at the edge of a bathtub this morning and then fell. He does not recall falling and could not provide any further details. Patient reports the next thing he remembers is being in the ER. At bedside, patient cannot recall what city he is in, why he is in the hospital or the date correctly. He does identify himself and his birthday correctly. Patient reports no complaints at this time and denies having any fevers, chills, blurry vision, sore throat, cough, shortness of breath, chest pain, nausea, vomiting, diarrhea , dysuria, blood in stool, numbness or tingling in extremities. Patient reports that he drinks "a few glasses of whiskey" every night. Smokes 1 ppd. Denied any illicit drug use. In the ER, CBC unremarkable, potassium 2.7, lactate 3.3, transaminitis and UDS negative. CT head negative. CXR negative. Patient started on banana bag, 1 L NS bolus and started on IV KCl 40 mEq. Diagnosis: Stroke: No - Discharge Data Discharge Date: 05/29/19 Discharge Disposition: Home, Self-Care 01 Condition: Good - Referral to Home Health Primary Care Physician: PCP None - Discharge Diagnosis/Problem(s) (1) Malnutrition SNOMED Code(s): 09752576 ICD Code: E46 - UNSPECIFIED PROTEIN-CALORIE MALNUTRITION Status: Acute (2) Protein calorie malnutrition SNOMED Code(s): 875470241 ICD Code: E46 - UNSPECIFIED PROTEIN-CALORIE MALNUTRITION Status: Acute (3) Hypertension SNOMED Code(s): 43202048 ICD Code: I10 - ESSENTIAL (PRIMARY) HYPERTENSION Status: Acute (4) Hypokalemia SNOMED Code(s): 30678957 ICD Code: E87.6 - HYPOKALEMIA Status: Acute (5) Mental status alteration SNOMED Code(s): 747416809 ICD Code: R41.82 - ALTERED MENTAL STATUS, UNSPECIFIED Status: Acute (6) Alcohol abuse SNOMED Code(s): 32156101 ICD Code: F10.10 - ALCOHOL ABUSE, UNCOMPLICATED Status: Acute - Patient Summary/Data Consults: Consultations 05/27/19 10:28 Consult to Physical Therapy [PT Evaluation and Treatment] [CONS] Routine 05/28/19 12:44 Consult to [employer] [CONS] Routine - Patient Instructions Diet: Regular Diet as Tolerated Activity: As Tolerated, No Strenuous Activities Showering/Bathing: May Shower Notify Provider of: Fever, Increased Pain, Swelling and Redness, Drainage, Nausea and/or Vomiting - Discharge Plan *PRESCRIPTION DRUG MONITORING PROGRAM REVIEWED*: Not Applicable *COPY OF PRESCRIPTION DRUG MONITORING REPORT IN PATIENT JAX: Not Applicable Prescriptions/Med Rec: amLODIPine [Norvasc] 5 mg PO DAILY #30 tablet Folic Acid 1 mg PO BEDTIME #30 tablet Multivit with Calcium,Iron,Min [Essential Daily] 1 each PO DAILY #30 tablet Thiamine [Vitamin B-1] 100 mg PO BEDTIME #30 tablet Home Medications: Home Meds Folic Acid 1 mg PO BEDTIME #30 tablet 05/29/19 [Rx] Multivit with Calcium,Iron,Min [Essential Daily] 1 each PO DAILY #30 tablet 04/07 [Rx] Thiamine [Vitamin B-1] 100 mg PO BEDTIME #30 tablet 05/29/19 [Rx] amLODIPine [Norvasc] 5 mg PO DAILY #30 tablet 05/29/19 [Rx] Oxygen Therapy Mode: Room Air Patient Handouts: Alcohol Use Disorder, Hypokalemia, Thiamine, Vitamin B1 tablets, Amlodipine tablets, Vitamin and Mineral Combinations (oral solid dosage forms), Folic Acid, Vitamin B9 tablets Referrals: Radhika Granger MD [Physician] - 07/02/19 9:30 am Gregorio Francisco MD [Resident] - 06/04/19 2:00 pm - Discharge Summary/Plan Comment DC Time >30 min.: No Discharge Summary/Plan Comment: Admitting Diagnoses: AMS UTI Malnutrition Hypokalemia Hypomagnesemia Discharge Diagnoses: AMS- improved Mild cognitive impairment secondary to alcohol abuse Protein Malnutrition HTN Other PMH: Alcohol abuse Demetrius was admitted secondary to confusion and AMS. His brother felt like he was not himself. When he was admitted he was found to have UTI, he was treated with Rocephin for 3 days, UC returned with mixed peggy less than 10,000. He steadily improved in cognition. No infection noted. HEad CT negative. HE was monitored on [facility] protocol for alcohol withdrawal. No signs of this during his stay. He was seen by physical therapy for ambulation, which he ambulated well with minimal assistance. B12 obtained, which was normal. Electrolye abnormalities were corrected prior to discharge. He was highly encouraged to refrain from alcohol use. MRI was obtained as well which showed no evidence of infarction. I did discuss his case with Neurology, who felt he had thorough work up as inpatient and would benefit from further evaluation in her office. He was started on Norvasc 5 mg for HTN. This lowered BP from 180 SBP to 130-150 SBP. He is to follow up with PCP and Neurology as scheduled. I did speak with his brother on discharge and encouraged adequate nutrition at home, continuing thiamine, folic acid and Multivitamins. He was urged to keep alcohol away. He did ask about working and driving. I recommended no driving or working at this time, as memory concerns continue. He (brother_ verbalized understanding. He is to return to ED or clinic if concerns should arise. - General Info Date of Service: 05/29/19 Admission Dx/Problem (Free Text: Admission Diagnosis/Problem Admission Diagnosis/Problem Hypokalemia, confusion Subjective Update: Denies chest pain or SOB. He is alert and oriented x 2. Some confusion on where he is, he goes between knowing where he is and then doesn't Continues to always know self and . - Review of Systems General: Reports: No Symptoms. Denies: Weakness Pulmonary: Reports: No Symptoms. Denies: Shortness of Breath Cardiovascular: Reports: No Symptoms. Denies: Chest Pain Gastrointestinal: Reports: No Symptoms Genitourinary: Reports: No Symptoms Skin: Reports: No Symptoms Psychiatric: Reports: Confusion - Patient Data Vitals - Most Recent: Last Vital Signs Temp 97.3 F 05/29/19 07:20 Pulse 80 05/29/19 07:20 Resp 16 05/29/19 07:20 BP 145/90 H 05/29/19 08:25 Pulse Ox 100 05/29/19 07:20 Weight - Most Recent: 68.4 kg I&O - Last 24 hours: Intake & Output 05/28/19 05/29/19 05/29/19 22:59 06:59 14:59 Intake Total 1300 650 100 Output Total 275 100 Balance 1025 550 100 Lab Results - Last 24 hrs: Laboratory Results - last 24 hr 12/03/0805/28/19 05/29/19 Range/Units 05:35 14:38 05:20 WBC 5.01 (4.0-11.0) K/uL RBC 2.92 L (4.50-5.90) M/uL Hgb 9.9 L (13.0-17.0) g/dL Hct 29.4 L (38.0-50.0) % MCV 100.7 H (80.0-98.0) fL MCH 33.9 H (27.0-32.0) pg MCHC 33.7 (31.0-37.0) g/dL RDW Std Deviation 53.5 (28.0-62.0) fl RDW Coeff of Imer 15 (11.0-15.0) % Plt Count 190 (150-400) K/uL MPV 9.20 (7.40-12.00) fL Neut % (Auto) 58.2 (48.0-80.0) % Lymph % (Auto) 23.4 (16.0-40.0) % [place] % (Auto) 17.6 H (0.0-15.0) % Eos % (Auto) 0.6 (0.0-7.0) % Baso % (Auto) 0.2 (0.0-1.5) % Neut # (Auto) 2.9 (1.4-5.7) K/uL Lymph # (Auto) 1.2 (0.6-2.4) K/uL [place] # (Auto) 0.9 H (0.0-0.8) K/uL Eos # (Auto) 0.0 (0.0-0.7) K/uL Baso # (Auto) 0.0 (0.0-0.1) K/uL Nucleated RBC % 0.0 /100WBC Nucleated RBCs # 0 K/uL Sodium (136-148) mmol/L Potassium 3.5 (3.5-5.1) mmol/L Chloride (98-107) mmol/L Carbon Dioxide (21.0-32.0) mmol/L BUN (7.0-18.0) mg/dL Creatinine (0.8-1.3) mg/dL Est Cr Clr Drug Dosing mL/min Estimated GFR (MDRD) ml/min Glucose (74-106) mg/dL Calcium (8.5-10.1) mg/dL Phosphorus (2.6-4.7) mg/dL Magnesium (1.8-2.4) mg/dL Total Bilirubin (0.2-1.0) mg/dL AST (15-37) IU/L ALT (14-63) IU/L Alkaline Phosphatase (46-116) U/L Total Protein (6.4-8.2) g/dL Albumin (3.4-5.0) g/dL Globulin (2.6-4.0) g/dL Albumin/Globulin Ratio (0.9-1.6) Vitamin B12 413 (193-986) pg/mL 05/29/19 Range/Units 05:20 WBC (4.0-11.0) K/uL RBC (4.50-5.90) M/uL Hgb (13.0-17.0) g/dL Hct (38.0-50.0) % MCV (80.0-98.0) fL MCH (27.0-32.0) pg MCHC (31.0-37.0) g/dL RDW Std Deviation (28.0-62.0) fl RDW Coeff of Imer (11.0-15.0) % Plt Count (150-400) K/uL MPV (7.40-12.00) fL Neut % (Auto) (48.0-80.0) % Lymph % (Auto) (16.0-40.0) % [place] % (Auto) (0.0-15.0) % Eos % (Auto) (0.0-7.0) % Baso % (Auto) (0.0-1.5) % Neut # (Auto) (1.4-5.7) K/uL Lymph # (Auto) (0.6-2.4) K/uL [place] # (Auto) (0.0-0.8) K/uL Eos # (Auto) (0.0-0.7) K/uL Baso # (Auto) (0.0-0.1) K/uL Nucleated RBC % /100WBC Nucleated RBCs # K/uL Sodium 136 (136-148) mmol/L Potassium 3.2 L (3.5-5.1) mmol/L Chloride 102 (98-107) mmol/L Carbon Dioxide 24.9 (21.0-32.0) mmol/L BUN 6 L (7.0-18.0) mg/dL Creatinine 0.6 L (0.8-1.3) mg/dL Est Cr Clr Drug Dosing 137.75 mL/min Estimated GFR (MDRD) > 60.0 ml/min Glucose 87 (74-106) mg/dL Calcium 8.1 L (8.5-10.1) mg/dL Phosphorus 3.5 (2.6-4.7) mg/dL Magnesium 1.6 L (1.8-2.4) mg/dL Total Bilirubin 0.5 (0.2-1.0) mg/dL AST 46 H (15-37) IU/L ALT 50 (14-63) IU/L Alkaline Phosphatase 76 (46-116) U/L Total Protein 5.9 L (6.4-8.2) g/dL Albumin 2.9 L (3.4-5.0) g/dL Globulin 3.0 (2.6-4.0) g/dL Albumin/Globulin Ratio 1.0 (0.9-1.6) Vitamin B12 (193-986) pg/mL TERESA Results - Last 24 hrs: Microbiology 05/26/19 16:55 Aerobic Blood Culture - Preliminary Blood - Venous - Lab Draw NO GROWTH AFTER 2 DAYS Anaerobic Blood Culture - Preliminary NO GROWTH AFTER 2 DAYS 05/26/19 16:32 Aerobic Blood Culture - Preliminary Blood - Venous NO GROWTH AFTER 2 DAYS Anaerobic Blood Culture - Preliminary NO GROWTH AFTER 2 DAYS 05/26/19 18:00 Urine Culture - Final Urine, Clean Catch MIXED PEGGY 1,000-10,000 CFU/ML Med Orders - Current: Current Medications Acetaminophen (Tylenol) 650 mg PO Q4H PRN PRN Reason: Pain (Mild 1-3)/fever Amlodipine Besylate (Norvasc) 5 mg PO DAILY [facility] Last Admin: 05/29/19 08:25 Dose: 5 mg Enoxaparin Sodium (Lovenox) 40 mg SUBCUT Q24H [facility] Last Admin: 05/28/19 20:46 Dose: 40 mg Folic Acid (Folic Acid) 1 mg PO BEDTIME [facility] Last Admin: 05/28/19 20:45 Dose: 1 mg Ceftriaxone Sodium/Dextrose 1 (gm/ Premix) 50 mls @ 100 mls/hr IV Q24H [facility] Last Admin: 05/28/19 19:11 Dose: 100 mls/hr Labetalol HCl (Normodyne) 10 mg IVPUSH ONETIME PRN; Protocol PRN Reason: Other Lorazepam (Ativan) 0 mg PO Q6H PRN; Protocol PRN Reason: Agitation Nicotine (Habitrol) 14 mg TRDERM DAILY [facility] Last Admin: 05/29/19 08:24 Dose: Not Given Ondansetron HCl (Zofran Odt) 4 mg PO Q4H PRN PRN Reason: nausea, able to take PO Ondansetron HCl (Zofran) 4 mg IVPUSH Q4H PRN PRN Reason: Nausea Thiamine HCl (Vitamin B-1) 100 mg PO BEDTIME [facility] Last Admin: 05/28/19 20:45 Dose: 100 mg Discontinued Medications Amlodipine Besylate (Norvasc) 5 mg PO DAILY [facility] Last Admin: 05/28/19 09:04 Dose: 5 mg Amlodipine Besylate (Norvasc) 5 mg PO ONETIME ONE Stop: 05/28/19 12:51 Last Admin: 05/28/19 14:50 Dose: Not Given Amlodipine Besylate (Norvasc) 10 mg PO DAILY [facility] Folic Acid (Folic Acid) 1 mg PO BEDTIME [facility] Gadobenate Dimeglumine (Multihance) 20 ml IVPUSH ONETIME STA Stop: 05/28/19 13:42 Last Admin: 05/28/19 13:50 Dose: 13 ml Sodium Chloride (Normal Saline) 1,000 mls @ 999 mls/hr IV STAT ONE Stop: 05/26/19 17:35 Last Admin: 05/26/19 16:41 Dose: 999 mls/hr Multivitamins/Minerals 10 ml/Thiamine HCl 100 mg/ Folic Acid 1 mg/ Sodium Chloride 1,011.2 mls @ 999 mls/hr IV STAT ONE Stop: 05/26/19 18:39 Last Admin: 05/26/19 18:20 Dose: 999 mls/hr Potassium Chloride 40 meq/ (Premix) 100 mls @ 25 mls/hr IV ONETIME ONE Stop: 05/26/19 21:39 Last Admin: 05/26/19 18:20 Dose: 25 mls/hr Sodium Chloride (Normal Saline) 1,000 mls @ 150 mls/hr IV STAT [facility] Last Infusion: 05/26/19 18:24 Dose: 100 mls/hr Magnesium Sulfate 2 gm/ Premix 50 mls @ 25 mls/hr IV ONETIME ONE Stop: 05/26/19 20:41 Last Admin: 05/26/19 22:21 Dose: 25 mls/hr Sodium Chloride (Normal Saline) 1,000 mls @ 100 mls/hr IV STAT [facility] Last Admin: 05/28/19 03:59 Dose: 100 mls/hr Potassium Chloride 40 meq/ (Sodium Chloride) 270 mls @ 67.5 mls/hr IV ONETIME ONE Stop: 05/27/19 14:29 Last Admin: 05/27/19 11:00 Dose: 67.5 mls/hr Magnesium Sulfate 4 gm/Potassium Chloride/Sodium Chloride 1,008 mls @ 150 mls/ hr IV ASDIRECTED [facility] Stop: 05/28/19 14:54 Last Admin: 05/28/19 08:33 Dose: 150 mls/hr Magnesium Sulfate 2 gm/ Premix 50 mls @ 50 mls/hr IV ONETIME ONE Stop: 05/29/19 08:54 Last Admin: 05/29/19 08:28 Dose: 50 mls/hr Potassium Chloride (Klor-Con M20) 40 meq PO ONETIME ONE Stop: 05/26/19 18:49 Last Admin: 05/26/19 20:52 Dose: 40 meq Potassium Chloride (Klor-Con M20) 40 meq PO ONETIME ONE Stop: 05/28/19 08:08 Last Admin: 05/28/19 08:59 Dose: 40 meq Potassium Chloride (Klor-Con M20) 40 meq PO ONETIME ONE Stop: 05/29/19 07:56 Last Admin: 05/29/19 09:07 Dose: Not Given Potassium Chloride (Potassium Chloride) 40 meq PO ONETIME ONE Stop: 05/29/19 09:01 Last Admin: 05/29/19 09:04 Dose: 40 meq Thiamine HCl (Vitamin B-1) 100 mg PO BEDTIME [facility] - Exam General: Reports: Alert. Denies: Oriented (x2) Lungs: Reports: Clear to Auscultation, Normal Respiratory Effort Cardiovascular: Reports: Regular Rate, Regular Rhythm GI/Abdominal Exam: Normal Bowel Sounds, Soft Neurological: Reports: No New Focal Deficit Psy/Mental Status: Reports: Alert, Normal Affect, Normal Mood
== END 2019-05-29 12:29 | disposition home or self-care (01) ==
LOC: MW.ED 16:29 → MW.MS 18:30
PROVIDERS: ADMIT Student in an Organized Health Care Education/Training Program; ATTEND Student in an Organized Health Care Education/Training Program
DX: R41.82 Altered mental status, unspecified (principal); E46 Unspecified protein-calorie malnutrition; I10 Essential (primary) hypertension; E87.6 Hypokalemia; F10.10 Alcohol abuse, uncomplicated; N39.0 Urinary tract infection, site not specified; E83.42 Hypomagnesemia; R74.0 Nonspecific elevation of levels of transaminase and lactic acid dehydrogenase [LDH]; F17.210 Nicotine dependence, cigarettes, uncomplicated; Z68.1 Body mass index [BMI] 19.9 or less, adult; Z79.899 Other long term (current) drug therapy
CPT/HCPCS: 36415; 36600; 70450; 70551; 71045; 80053; 80061; 80305; 80320; 81001; 82140; 82607; 82803; 83036; 83605; 83690; 83735; 84100; 84132; 84443; 84484; 85025; 85610; 87040; 87086; 93005; 96361; 96365; 97161; 97530; 99285; A9270; A9577; J0696; J1650; J3411; J3475; J3480; J7030; J7050; 96366; 96367; 96372; 96376; 99284; G0378; G0480

== ENCOUNTER 2019-11-28 10:33 | Emergency (ER) | payer SELFPAY ==
--- NOTE | 2019-11-28 10:40 | EDM.PDOC ---
ED HPI GENERAL MEDICAL PROBLEM - General Stated Complaint: MEDICAL CLEARANCE Time Seen by Provider: 11/28/19 10:39 Source of Information: Reports: Patient History Limitations: Reports: No Limitations - History of Present Illness INITIAL COMMENTS - FREE TEXT/NARRATIVE: HISTORY AND PHYSICAL: History of present illness: Patient is a 54-year-old male who presents to the emergency room with suicidal ideation. Patient reports that he has had intermittent thoughts of self-harm for several months. Today he called [facility] for help as he had planned to hurt himself with a knife. He was brought in by law enforcement as they had done a wellness check on him and found him with a knife and a suicide note addressed to his family member. Patient denies any alcohol, drug, prescription or [id number] medication abuse. Patient denies any fever, chills, headache, change in vision, syncope or near syncope. Denies any chest pain, back pain, shortness of breath or cough. Denies any GI or symptoms. Patient has been eating and drinking appropriately. Review of systems: As per history of present illness and below otherwise all systems reviewed and negative. Past medical history: As per history of present illness and as reviewed below otherwise noncontributory. Surgical history: As per history of present illness and as reviewed below otherwise noncontributory. Social history: See social history for further information Family history: As per history of present illness and as reviewed below otherwise noncontributory. Physical exam: General: Well-developed and thin appearing 54-year-old male. Alert and oriented. Flat and avoids eye contact. Nontoxic-appearing and in no acute distress. Vital signs have been reviewed by me. Patient is accompanied by constitutional law professor. HEENT: Atraumatic, normocephalic, pupils equal and reactive bilaterally, negative for conjunctival pallor or scleral icterus, mucous membranes moist, TMs normal bilaterally, throat clear, neck supple, nontender, trachea midline. No drooling or trismus noted. No meningeal signs. No hot potato voice noted. Lungs: Clear to auscultation, breath sounds equal bilaterally, chest nontender. Heart: S1S2, regular rate and rhythm without overt murmur Abdomen: Soft, nondistended, nontender. Negative for masses or costovertebral tenderness. Pelvis: Stable nontender. Skin: Intact, warm, dry. No lesions or rashes noted. Multiple tattoos noted. Extremities: Atraumatic, moves all extremities per self without difficulty or deficits, negative for cords or calf pain. Neurovascular unremarkable. Neuro: Awake, alert, oriented. Cranial nerves II through XII unremarkable. Cerebellum unremarkable. Motor and sensory unremarkable throughout. Exam nonfocal. Notes: Lab work is unremarkable with the exception of UTI; cipro given while here. Patient has eaten while here. He is cooperative with care. He is aware of the mental health hold and need for transfer. 1220: [facility] in [place]: Full capacity at this time 1230: Dr Rober Arguello is reviewing patient's information for possible acceptance of him. 1315: Patient was accepted at [facility] by Dr. Richter. No change in patient's status he continues to be calm and cooperative. Diagnostics: CBC, CMP, TSH, acetaminophen, salicylate, urine, urine drug screen, EtOH Therapeutics: Cipro Impression: Suicidal ideation UTI Plan: Transfer to via ground EMS Definitive disposition and diagnosis as appropriate pending reevaluation and review of above. - Related Data Allergies Allergy/AdvReac Type Severity Reaction Status Date / Time shellfish derived Allergy Airway Verified 11/28/19 10:46 Tightness shrimp Allergy Airway Verified 11/28/19 10:46 Tightness Home Meds: Home Meds . [No Known Home Meds] 11/28/19 [History] Past Medical History - Past Health History Medical/Surgical History: Denies Medical/Surgical History Cardiovascular History: Reports: Hypertension Hematologic History: Reports: Blood Transfusion(s) - Infectious Disease History Infectious Disease History: Reports: Mumps Social & Family History - Family History Family Medical History: Noncontributory - Caffeine Use Caffeine Use: Reports: None ED ROS GENERAL - Review of Systems Review Of Systems: Comprehensive ROS is negative, except as noted in HPI. ED EXAM, GENERAL - Physical Exam Exam: See Below (See dictation) Course - Vital Signs Last Recorded V/S: Last Vital Signs Temp 97.8 F 11/28/19 10:43 Pulse 84 11/28/19 10:43 Resp 18 11/28/19 10:43 BP 149/108 H 11/28/19 10:43 Pulse Ox 99 11/28/19 10:43 - Orders/Labs/Meds Orders: Active Orders 24 hr Category Date Time Status CULTURE URINE [RM] Stat Lab 11/28/19 11:44 Received Labs: Laboratory Tests 11/28/19 11/28/19 11/28/19 Range/Units 11:11 11:11 11:44 WBC 3.71 L (4.0-11.0) K/uL RBC 5.04 (4.50-5.90) M/uL Hgb 14.6 (13.0-17.0) g/dL Hct 43.9 (38.0-50.0) % MCV 87.1 (80.0-98.0) fL MCH 29.0 (27.0-32.0) pg MCHC 33.3 (31.0-37.0) g/dL RDW Std Deviation 52.3 (28.0-62.0) fl RDW Coeff of Imer 16 H (11.0-15.0) % Plt Count 170 (150-400) K/uL MPV 9.70 (7.40-12.00) fL Neut % (Auto) 61.7 (48.0-80.0) % Lymph % (Auto) 29.4 (16.0-40.0) % Campbell % (Auto) 6.5 (0.0-15.0) % Eos % (Auto) 1.6 (0.0-7.0) % Baso % (Auto) 0.8 (0.0-1.5) % Neut # (Auto) 2.3 (1.4-5.7) K/uL Lymph # (Auto) 1.1 (0.6-2.4) K/uL Campbell # (Auto) 0.2 (0.0-0.8) K/uL Eos # (Auto) 0.1 (0.0-0.7) K/uL Baso # (Auto) 0.0 (0.0-0.1) K/uL Nucleated RBC % 0.0 /100WBC Nucleated RBCs # 0 K/uL Sodium 140 (136-148) mmol/L Potassium 3.2 L (3.5-5.1) mmol/L Chloride 99 (98-107) mmol/L Carbon Dioxide 29.5 (21.0-32.0) mmol/L BUN 11 (7.0-18.0) mg/dL Creatinine 0.9 (0.8-1.3) mg/dL Est Cr Clr Drug Dosing 96.32 mL/min Estimated GFR (MDRD) > 60.0 ml/min Glucose 98 (74-106) mg/dL Calcium 9.2 (8.5-10.1) mg/dL Total Bilirubin 1.2 H (0.2-1.0) mg/dL AST 22 (15-37) IU/L ALT 15 (14-63) IU/L Alkaline Phosphatase 60 (46-116) U/L Total Protein 7.0 (6.4-8.2) g/dL Albumin 3.9 (3.4-5.0) g/dL Globulin 3.1 (2.6-4.0) g/dL Albumin/Globulin Ratio 1.3 (0.9-1.6) TSH 3rd Generation 0.66 (0.36-3.74) uIU/mL Urine Color DARK YELLOW Urine Appearance CLEAR Urine pH 6.0 (5.0-8.0) Ur Specific Harwood >= 1.030 (1.001-1.035) Urine Protein 30 H (NEGATIVE) mg/dL Urine Glucose (UA) NEGATIVE (NEGATIVE) mg/dL Urine Ketones TRACE H (NEGATIVE) mg/dL Urine Occult Blood NEGATIVE (NEGATIVE) Urine Nitrite POSITIVE H (NEGATIVE) Urine Bilirubin MODERATE H (NEGATIVE) Urine Ictotest NEGATIVE Urine Urobilinogen 2.0 H (<2.0) EU/dL Ur Leukocyte Esterase NEGATIVE (NEGATIVE) Urine RBC 0-2 (0-2/HPF) Urine WBC 2-4 (0-5/HPF) Ur Epithelial Cells FEW (NONE-FEW) Urine Bacteria MODERATE (NEGATIVE) Urine Mucus MODERATE (NONE-MOD) Salicylates 2.4 (0-20) mg/dL Urine Opiates Screen (NEGATIVE) Ur Oxycodone Screen (NEGATIVE) Urine Methadone Screen (NEGATIVE) Acetaminophen <2.0 ug/mL Ur Barbiturates Screen (NEGATIVE) Ur Phencyclidine Scrn (NEGATIVE) Ur Amphetamine Screen (NEGATIVE) U Methamphetamines Scrn (NEGATIVE) U Benzodiazepines Scrn (NEGATIVE) U Cocaine Metab Screen (NEGATIVE) U Marijuana (THC) Screen (NEGATIVE) Ethyl Alcohol < 3.0 mg/dL 11/28/19 Range/Units 11:44 WBC (4.0-11.0) K/uL RBC (4.50-5.90) M/uL Hgb (13.0-17.0) g/dL Hct (38.0-50.0) % MCV (80.0-98.0) fL MCH (27.0-32.0) pg MCHC (31.0-37.0) g/dL RDW Std Deviation (28.0-62.0) fl RDW Coeff of Imer (11.0-15.0) % Plt Count (150-400) K/uL MPV (7.40-12.00) fL Neut % (Auto) (48.0-80.0) % Lymph % (Auto) (16.0-40.0) % Campbell % (Auto) (0.0-15.0) % Eos % (Auto) (0.0-7.0) % Baso % (Auto) (0.0-1.5) % Neut # (Auto) (1.4-5.7) K/uL Lymph # (Auto) (0.6-2.4) K/uL Campbell # (Auto) (0.0-0.8) K/uL Eos # (Auto) (0.0-0.7) K/uL Baso # (Auto) (0.0-0.1) K/uL Nucleated RBC % /100WBC Nucleated RBCs # K/uL Sodium (136-148) mmol/L Potassium (3.5-5.1) mmol/L Chloride (98-107) mmol/L Carbon Dioxide (21.0-32.0) mmol/L BUN (7.0-18.0) mg/dL Creatinine (0.8-1.3) mg/dL Est Cr Clr Drug Dosing mL/min Estimated GFR (MDRD) ml/min Glucose (74-106) mg/dL Calcium (8.5-10.1) mg/dL Total Bilirubin (0.2-1.0) mg/dL AST (15-37) IU/L ALT (14-63) IU/L Alkaline Phosphatase (46-116) U/L Total Protein (6.4-8.2) g/dL Albumin (3.4-5.0) g/dL Globulin (2.6-4.0) g/dL Albumin/Globulin Ratio (0.9-1.6) TSH 3rd Generation (0.36-3.74) uIU/mL Urine Color Urine Appearance Urine pH (5.0-8.0) Ur Specific Harwood (1.001-1.035) Urine Protein (NEGATIVE) mg/dL Urine Glucose (UA) (NEGATIVE) mg/dL Urine Ketones (NEGATIVE) mg/dL Urine Occult Blood (NEGATIVE) Urine Nitrite (NEGATIVE) Urine Bilirubin (NEGATIVE) Urine Ictotest Urine Urobilinogen (<2.0) EU/dL Ur Leukocyte Esterase (NEGATIVE) Urine RBC (0-2/HPF) Urine WBC (0-5/HPF) Ur Epithelial Cells (NONE-FEW) Urine Bacteria (NEGATIVE) Urine Mucus (NONE-MOD) Salicylates (0-20) mg/dL Urine Opiates Screen NEGATIVE (NEGATIVE) Ur Oxycodone Screen NEGATIVE (NEGATIVE) Urine Methadone Screen NEGATIVE (NEGATIVE) Acetaminophen ug/mL Ur Barbiturates Screen NEGATIVE (NEGATIVE) Ur Phencyclidine Scrn NEGATIVE (NEGATIVE) Ur Amphetamine Screen NEGATIVE (NEGATIVE) U Methamphetamines Scrn NEGATIVE (NEGATIVE) U Benzodiazepines Scrn NEGATIVE (NEGATIVE) U Cocaine Metab Screen NEGATIVE (NEGATIVE) U Marijuana (THC) Screen NEGATIVE (NEGATIVE) Ethyl Alcohol mg/dL Meds: Medications Discontinued Medications Generic Name Dose Route Start Last Admin Trade Name Freq PRN Reason Stop Dose Admin Ciprofloxacin 500 mg 11/28/19 12:16 11/28/19 12:53 Ciprofloxacin Hcl PO 11/28/19 12:17 500 mg ONETIME ONE Administration Departure - Departure Time of Disposition: 13:18 Disposition: DC/Tfer to Psych Hosp/Unit [facility] Clinical Impression: Suicidal ideation UTI (urinary tract infection) Qualifiers: Urinary tract infection type: acute cystitis Hematuria presence: without hematuria Qualified Code(s): N30.00 - Acute cystitis without hematuria - Discharge Information Referrals: PCP,None [Primary Care Provider] - Sepsis Event Note (ED) - Focused Exam Vital Signs: Vital Signs Temp Pulse Resp BP Pulse Ox 11/28/19 10:43 97.8 F 84 18 149/108 H 99 - My Orders Last 24 Hours: My Active Orders 11/28/19 11:44 CULTURE URINE [RM] Stat - Assessment/Plan Last 24 Hours: My Active Orders 11/28/19 11:44 CULTURE URINE [RM] Stat
[2019-11-28 12:08] LABS: ACETAMINOPHEN <2.0 ug/mL; BLOOD UREA NITROGEN,BUN 11 mg/dL (7.0-18.0); CARBON DIOXIDE,CO2 29.5 mmol/L (21.0-32.0); CHLORIDE,CL 99 mmol/L (98-107); GLUCOSE RANDOM 98 mg/dL (74-106); POTASSIUM,K 3.2 mmol/L (3.5-5.1); SODIUM,NA 140 mmol/L (136-148)
[2019-11-28] MEDS ORDERED: Ciprofloxacin 500 MG Tab PO ONE (12:16)
== END 2019-11-28 14:15 ==
LOC: MW.ED 10:33
DX: R45.851 Suicidal ideations (principal); N30.00 Acute cystitis without hematuria; I10 Essential (primary) hypertension; Z91.013 Allergy to seafood
CPT/HCPCS: 36415; 80053; 80305; 80307; 81001; 84443; 85025; 87086; 99285; A9270; 99284

== ENCOUNTER 2019-11-30 18:02 | Emergency (ER) | payer SELFPAY ==
--- NOTE | 2019-11-30 19:15 | EDM.PDOCBH ---
ED HPI GENERAL MEDICAL PROBLEM - General Chief Complaint: Behavioral/Psych Stated Complaint: MEDICAL CLEARANCE Time Seen by Provider: 11/30/19 18:25 Source of Information: Reports: Patient, Old Records, Police History Limitations: Reports: No Limitations - History of Present Illness INITIAL COMMENTS - FREE TEXT/NARRATIVE: This patient is a 54-year-old male with a past medical history of hypertension, alcohol abuse, suicidal ideations presenting with suicidal ideations. Per nursing report, the patient was discharged from [facility] in [place]. He was just transferred there on 11/28/2019 from our facility due to mental health concerns and was discharged home today to the care of his brother. Per nursing report, the patient went home from [place] and then immediately called the crisis hotline complaining of experiencing suicidal ideations. He reportedly has been caring a razor blade and has been cutting his wrists over the past few days. Here in the emergency department, the patient has no acute complaints. He complains of feeling down and depressed over the past few weeks, similar to how he was feeling when he was seen in our ER on November 28, 2019. He denies feeling any more depressed than before. He denies any plan to harm himself or anybody else. He denies wanting to at this moment. Denies any alcohol or drug use. I did speak with the [place] traffic police officer Teresita (tea #[id number]) who evaluated the patient earlier. He did not voice any concerns about the patient being an imminent threat to himself or others, and notes that the patient did not voice any plan to harm himself today. He do not feel that the patient met criteria for legal hold/commitment and just brought him the emergency department to have somebody to speak to and receive mental health resources. Nursing triage note did mention that he had plans to cut his wrists today, the patient denies this at the moment to me. He states he has no plans to harm himself. - Related Data Allergies Allergy/AdvReac Type Severity Reaction Status Date / Time shellfish derived Allergy Airway Verified 11/30/19 18:43 Tightness shrimp Allergy Airway Verified 11/30/19 18:43 Tightness Home Meds: Home Meds . [No Known Home Meds] 11/28/19 [History] Past Medical History - Past Health History Medical/Surgical History: Denies Medical/Surgical History Cardiovascular History: Reports: Hypertension Hematologic History: Reports: Blood Transfusion(s) - Infectious Disease History Infectious Disease History: Reports: Mumps Social & Family History - Family History Family Medical History: Noncontributory - Tobacco Use Smoking Status *Q: Current Every Day Smoker Years of Tobacco use: 35 Packs/Tins Daily: 1 - Caffeine Use Caffeine Use: Reports: None - Recreational Drug Use Recreational Drug Use: No ED ROS GENERAL - Review of Systems Review Of Systems: See Below Constitutional: Denies: Fever, Chills HEENT: Reports: No Symptoms Respiratory: Denies: Shortness of Breath Cardiovascular: Denies: Chest Pain Endocrine: Reports: No Symptoms GI/Abdominal: Denies: Abdominal Pain : Reports: No Symptoms Musculoskeletal: Reports: No Symptoms Skin: Reports: No Symptoms Neurological: Reports: No Symptoms Psychiatric: Reports: Depression (Chronic). Denies: Agitation, Anxiety, Homicidal Ideation, Suicidal Ideation Hematologic/Lymphatic: Reports: No Symptoms Immunologic: Reports: No Symptoms ED EXAM, BEHAVIORAL HEALTH - Physical Exam Exam: See Below Text/Narrative:: Vital signs reviewed. Nursing notes reviewed. Constitutional: Awake, alert, non-distressed. Head: Normocephalic, atraumatic. Eyes: EOMI, conjunctiva normal, no discharge, no scleral icterus. PERRL @ 3 mm b /l. Ears, Nose, Throat: External ears and nose normal, moist oral mucosa. Cardiovascular: 2+ radial pulse, capillary refill less than 2 seconds. Pulmonary: normal work of breathing, no accessory muscle use. Abdomen/GI: nondistended Musculoskeletal: No deformities. Integumentary: Appropriate color for ethnicity, warm, dry, no pallor or jaundice , no rash. Neurologic: Alert, answering questions appropriately, normal speech, no facial droop, moving all extremities well. Psychiatric: Appropriate mood and affect, normal thought process. No hallucinations. Rational thought process. No suicidal or homicidal ideations. EKG INTERPRETATION EKG Interpretation Comments: 12-Lead ECG Interpretation Acquired: 6:59 PM Rhythm: Sinus rhythm Rate: 75 bpm Diller: Normal Intervals: Normal Ectopy: None Ischemic Changes: None apparent RV Strain: No obvious RV strain pattern. ST Segments/T-Waves: No notable changes Interpretation: Unremarkable COURSE, BEHAVIORAL HEALTH COMP - Course Vital Signs: Last Vital Signs Temp 36.6 C 11/30/19 18:44 Pulse 78 11/30/19 18:44 Resp 18 11/30/19 18:44 BP 179/113 H 11/30/19 18:44 Pulse Ox 98 11/30/19 18:44 Orders, Labs, Meds: Active Orders 24 hr Category Date Time Status EKG Documentation Completion [RC] STAT Care 11/30/19 18:54 Active Laboratory Tests 11/30/19 11/30/19 11/30/19 Range/Units 19:06 19:06 19:15 WBC 5.33 (4.0-11.0) K/uL RBC 4.03 L (4.50-5.90) M/uL Hgb 11.8 L (13.0-17.0) g/dL Hct 35.7 L (38.0-50.0) % MCV 88.6 (80.0-98.0) fL MCH 29.3 (27.0-32.0) pg MCHC 33.1 (31.0-37.0) g/dL RDW Std Deviation 54.9 (28.0-62.0) fl RDW Coeff of Imer 17 H (11.0-15.0) % Plt Count 123 L (150-400) K/uL MPV 9.50 (7.40-12.00) fL Neut % (Auto) 65.7 (48.0-80.0) % Lymph % (Auto) 23.8 (16.0-40.0) % [place] % (Auto) 9.2 (0.0-15.0) % Eos % (Auto) 0.9 (0.0-7.0) % Baso % (Auto) 0.4 (0.0-1.5) % Neut # (Auto) 3.5 (1.4-5.7) K/uL Lymph # (Auto) 1.3 (0.6-2.4) K/uL [place] # (Auto) 0.5 (0.0-0.8) K/uL Eos # (Auto) 0.1 (0.0-0.7) K/uL Baso # (Auto) 0.0 (0.0-0.1) K/uL Nucleated RBC % 0.0 /100WBC Nucleated RBCs # 0 K/uL Sodium 142 (136-148) mmol/L Potassium 3.4 L (3.5-5.1) mmol/L Chloride 107 (98-107) mmol/L Carbon Dioxide 25.4 (21.0-32.0) mmol/L BUN 18 (7.0-18.0) mg/dL Creatinine 0.7 L (0.8-1.3) mg/dL Est Cr Clr Drug Dosing 119.97 mL/min Estimated GFR (MDRD) > 60.0 ml/min Glucose 88 (74-106) mg/dL Calcium 8.1 L (8.5-10.1) mg/dL Total Bilirubin 0.4 (0.2-1.0) mg/dL AST 22 (15-37) IU/L ALT 22 (14-63) IU/L Alkaline Phosphatase 53 (46-116) U/L Total Protein 6.1 L (6.4-8.2) g/dL Albumin 3.6 (3.4-5.0) g/dL Globulin 2.5 L (2.6-4.0) g/dL Albumin/Globulin Ratio 1.4 (0.9-1.6) TSH 3rd Generation 0.41 (0.36-3.74) uIU/mL Urine Color YELLOW Urine Appearance CLEAR Urine pH 5.5 (5.0-8.0) Ur Specific [place] >= 1.030 (1.001-1.035) Urine Protein NEGATIVE (NEGATIVE) mg/dL Urine Glucose (UA) NEGATIVE (NEGATIVE) mg/dL Urine Ketones TRACE H (NEGATIVE) mg/dL Urine Occult Blood NEGATIVE (NEGATIVE) Urine Nitrite NEGATIVE (NEGATIVE) Urine Bilirubin NEGATIVE (NEGATIVE) Urine Urobilinogen 0.2 (<2.0) EU/dL Ur Leukocyte Esterase NEGATIVE (NEGATIVE) Salicylates 2.4 (0-20) mg/dL Urine Opiates Screen (NEGATIVE) Ur Oxycodone Screen (NEGATIVE) Urine Methadone Screen (NEGATIVE) Acetaminophen <2.0 ug/mL Ur Barbiturates Screen (NEGATIVE) Ur Phencyclidine Scrn (NEGATIVE) Ur Amphetamine Screen (NEGATIVE) U Methamphetamines Scrn (NEGATIVE) U Benzodiazepines Scrn (NEGATIVE) U Cocaine Metab Screen (NEGATIVE) U Marijuana (THC) Screen (NEGATIVE) 11/30/19 Range/Units 19:15 WBC (4.0-11.0) K/uL RBC (4.50-5.90) M/uL Hgb (13.0-17.0) g/dL Hct (38.0-50.0) % MCV (80.0-98.0) fL MCH (27.0-32.0) pg MCHC (31.0-37.0) g/dL RDW Std Deviation (28.0-62.0) fl RDW Coeff of Imer (11.0-15.0) % Plt Count (150-400) K/uL MPV (7.40-12.00) fL Neut % (Auto) (48.0-80.0) % Lymph % (Auto) (16.0-40.0) % [place] % (Auto) (0.0-15.0) % Eos % (Auto) (0.0-7.0) % Baso % (Auto) (0.0-1.5) % Neut # (Auto) (1.4-5.7) K/uL Lymph # (Auto) (0.6-2.4) K/uL [place] # (Auto) (0.0-0.8) K/uL Eos # (Auto) (0.0-0.7) K/uL Baso # (Auto) (0.0-0.1) K/uL Nucleated RBC % /100WBC Nucleated RBCs # K/uL Sodium (136-148) mmol/L Potassium (3.5-5.1) mmol/L Chloride (98-107) mmol/L Carbon Dioxide (21.0-32.0) mmol/L BUN (7.0-18.0) mg/dL Creatinine (0.8-1.3) mg/dL Est Cr Clr Drug Dosing mL/min Estimated GFR (MDRD) ml/min Glucose (74-106) mg/dL Calcium (8.5-10.1) mg/dL Total Bilirubin (0.2-1.0) mg/dL AST (15-37) IU/L ALT (14-63) IU/L Alkaline Phosphatase (46-116) U/L Total Protein (6.4-8.2) g/dL Albumin (3.4-5.0) g/dL Globulin (2.6-4.0) g/dL Albumin/Globulin Ratio (0.9-1.6) TSH 3rd Generation (0.36-3.74) uIU/mL Urine Color Urine Appearance Urine pH (5.0-8.0) Ur Specific [place] (1.001-1.035) Urine Protein (NEGATIVE) mg/dL Urine Glucose (UA) (NEGATIVE) mg/dL Urine Ketones (NEGATIVE) mg/dL Urine Occult Blood (NEGATIVE) Urine Nitrite (NEGATIVE) Urine Bilirubin (NEGATIVE) Urine Urobilinogen (<2.0) EU/dL Ur Leukocyte Esterase (NEGATIVE) Salicylates (0-20) mg/dL Urine Opiates Screen NEGATIVE (NEGATIVE) Ur Oxycodone Screen NEGATIVE (NEGATIVE) Urine Methadone Screen NEGATIVE (NEGATIVE) Acetaminophen ug/mL Ur Barbiturates Screen NEGATIVE (NEGATIVE) Ur Phencyclidine Scrn NEGATIVE (NEGATIVE) Ur Amphetamine Screen NEGATIVE (NEGATIVE) U Methamphetamines Scrn NEGATIVE (NEGATIVE) U Benzodiazepines Scrn NEGATIVE (NEGATIVE) U Cocaine Metab Screen NEGATIVE (NEGATIVE) U Marijuana (THC) Screen NEGATIVE (NEGATIVE) Medical Clearance: Patient hemodynamically stable, afebrile, well-appearing, looks nontoxic. Differential diagnosis includes but is not limited to: depression, suicidal ideation, overdose, ingestion, electrolyte disturbance, intracranial hemorrhage , dementia, thyroid disease, alcohol or drug intoxication, etc. She shows mild normocytic anemia. Mild thrombocytopenia. Electrolytes show very mild hypokalemia, normal renal function. TSH is within normal limits. Hepatic markers are reassuring. Urinalysis shows trace ketones but no evidence of infection. Tylenol and salicylates negative. Urine drug screen is negative. Head CT shows no acute changes. At this point, the patient is calm, rational, and able to have a normal conversation. He denies any plan to harm himself this evening. He denies wanting to commit any self-harm or harm anybody else. He does not demonstrate imminent threat to himself or others and does not meet criteria for a legal status hold or involuntary fpc. I did review his discharge paperwork from [facility] in [facility], discharge diagnosis was "cognitive impairment", no mention of depression or suicidal behavior as listed on the discharge diagnoses. I did recommend the patient establish care with our family medicine clinic and be reevaluated the next few days. He was strictly instructed to return to the emergency department or call 911 if he felt more depressed or felt like he wanted to harm himself or anybody else, he voiced understanding of these instructions. He does demonstrate rational thought process and adequate insight at this point. Plan: Patient is stable to discharge home with outpatient primary care follow- up. Strict emergency department return precautions were provided, patient indicated understanding. All questions were answered prior to departure. Discharged in good condition. Departure - Departure Time of Disposition: 21:44 Disposition: Home, Self-Care 01 Condition: Good Clinical Impression: Depression Qualifiers: Depression Type: unspecified Qualified Code(s): F32.9 - Major depressive disorder, single episode, unspecified - Discharge Information *PRESCRIPTION DRUG MONITORING PROGRAM REVIEWED*: Not Applicable *COPY OF PRESCRIPTION DRUG MONITORING REPORT IN PATIENT JAX: Not Applicable Instructions: Suicidal Feelings: How to Help Yourself, Major Depressive Disorder, Adult Referrals: [facility] - Family Practice [Provider Group] - 3 Days (For follow-up of depressive symptoms.) Forms: ED Department Discharge Additional Instructions: Thank you for choosing the [facility] emergency department in [place] for your medical needs today. It was a pleasure caring for you. You were seen in the emergency department for a mental health evaluation. At this point, your laboratory studies and CT scan look reassuring. I do think you have some problems with depression and I would like you to follow-up with a family medicine clinic in the next 2 to 3 days. You are to return to the emergency department or call 911 immediately if you feel more depressed or feel like you want to hurt yourself or others. I would counselling psychologist you to avoid drugs and alcohol. Please return the emergency department immediately if your symptoms worsen or if you feel worse. The following information is given to patients seen in the emergency department who are being discharged. This information is to outline your options for follow -up care. We provide all patients seen in our emergency department with a follow -up referral. The need for follow-up, as well as the timing and circumstances, are variable depending upon the specifics of your emergency department visit. If you don't have a primary care physician on staff, we will provide you with a referral. We always advise you to contact your personal physician following an emergency department visit to inform them of the circumstance of the visit and for follow-up with them and/or the need for any referrals to a consulting specialist. The emergency department will also refer you to a specialist when appropriate. This referral assures that you have the opportunity for follow-up care with a specialist. All of these measure are taken in an effort to provide you with optimal care, which includes your follow-up. Under all circumstances we always encourage you to contact your private physician who remains a resource for coordinating your care. When calling for follow-up care, please make the office aware that this follow-up is from your recent emergency room visit. If for any reason you are refused follow-up, please contact the [facility] Emergency Department at and asked to speak to the emergency department charge nurse. If you do not have a primary care physician that is caring for you, you can contact these clinics below to set up an appointment to establish care: [facility] - Primary [facility] [address] [place] [id number] [address] Sepsis Event Note (ED) - Evaluation Sepsis Screening Result: No Definite Risk - Focused Exam Vital Signs: Vital Signs Temp Pulse Resp BP Pulse Ox 11/30/19 18:44 36.6 C 78 18 179/113 H 98
[2019-11-30 19:52] LABS: BLOOD UREA NITROGEN,BUN 18 mg/dL (7.0-18.0); CARBON DIOXIDE,CO2 25.4 mmol/L (21.0-32.0); CHLORIDE,CL 107 mmol/L (98-107); GLUCOSE RANDOM 88 mg/dL (74-106); POTASSIUM,K 3.4 mmol/L (3.5-5.1); SODIUM,NA 142 mmol/L (136-148)
[2019-11-30 19:54] LABS: ACETAMINOPHEN <2.0 ug/mL
--- NOTE | 2019-11-30 20:25 | CT ---
INDICATION: concern for new dementia COMPARISON: 05.26.19 TECHNIQUE: A CT volumetric acquisition was performed of the brain without IV contrast. Please note that all CT scans at this facility use dose modulation, iterative reconstruction, and/or weight-based dosing when appropriate to reduce radiation dose to as low as reasonably achievable. FINDINGS: There is no intracranial hemorrhage, mass or mass effect. Minimal generalized cortical atrophy is present. Areas of low attenuation better bilaterally are similar to the prior exam, nonspecific, likely related to small vessel ischemic disease. No extra-axial fluid. No hydrocephalus. Sinuses are clear. No fracture. IMPRESSION: No acute intracranial pathology. Mild generalized cortical atrophy and chronic white matter changes likely related to small vessel ischemic disease. No significant change since the prior exam. Please note that all CT scans at this facility use dose modulation, iterative reconstruction, and/or weight-based dosing when appropriate to reduce radiation dose to as low as reasonably achievable. Dictated by Troy Aguayo MD @ Nov 30 2019 8:18PM Signed by Dr. Troy Aguayo @ Nov 30 2019 8:23PM
== END 2019-11-30 21:51 | disposition home or self-care (01) ==
LOC: MW.ED 18:02
DX: F32.9 Major depressive disorder, single episode, unspecified (principal); I10 Essential (primary) hypertension; F17.210 Nicotine dependence, cigarettes, uncomplicated; Z91.013 Allergy to seafood
CPT/HCPCS: 36415; 70450; 70450-26; 80053; 80305-QW; 80307; 81003; 84443; 85025; 93005; 99283; 99285-25

== ENCOUNTER 2019-12-01 18:08 | Emergency (ER) | payer SELFPAY ==
[2019-12-01 20:10] LABS: BLOOD UREA NITROGEN,BUN 13 mg/dL (7.0-18.0); CARBON DIOXIDE,CO2 29.7 mmol/L (21.0-32.0); CHLORIDE,CL 100 mmol/L (98-107); GLUCOSE RANDOM 88 mg/dL (74-106); POTASSIUM,K 3.3 mmol/L (3.5-5.1); SODIUM,NA 140 mmol/L (136-148)
[2019-12-01 20:11] LABS: ACETAMINOPHEN < 2.0 ug/mL
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
== END 2019-12-01 23:43 ==
LOC: MW.ED 18:08
DX: F32.9 Major depressive disorder, single episode, unspecified (principal); I10 Essential (primary) hypertension; F17.210 Nicotine dependence, cigarettes, uncomplicated; Z91.013 Allergy to seafood
CPT/HCPCS: 36415; 80053; 80305-QW; 80307; 93005; 99283; 99285-25

== ENCOUNTER 2019-12-11 17:30 | Emergency (ER) | payer MEDICAID ==
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
[2019-12-11 21:18] LABS: ACETAMINOPHEN <2.0 ug/mL; BLOOD UREA NITROGEN,BUN 20 mg/dL (7.0-18.0); CARBON DIOXIDE,CO2 28.4 mmol/L (21.0-32.0); CHLORIDE,CL 101 mmol/L (98-107); GLUCOSE RANDOM 105 mg/dL (74-106); POTASSIUM,K 4.2 mmol/L (3.5-5.1); SODIUM,NA 139 mmol/L (136-148)
== END 2019-12-11 23:00 | disposition home or self-care (01) ==
LOC: MW.ED 17:30
DX: R45.851 Suicidal ideations (principal); I10 Essential (primary) hypertension; F17.210 Nicotine dependence, cigarettes, uncomplicated; Z91.030 Bee allergy status; Z91.018 Allergy to other foods
CPT/HCPCS: 36415; 80053; 80305-QW; 80307; 83735; 84443; 85025; 93005; 99283; 99285-25

== ENCOUNTER 2019-12-13 18:34 | Emergency (ER) | payer SELFPAY ==
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
[2019-12-13 20:19] LABS: ACETAMINOPHEN <2.0 ug/mL; BLOOD UREA NITROGEN,BUN 20 mg/dL (7.0-18.0); CARBON DIOXIDE,CO2 26.3 mmol/L (21.0-32.0); CHLORIDE,CL 102 mmol/L (98-107); GLUCOSE RANDOM 99 mg/dL (74-106); POTASSIUM,K 4.5 mmol/L (3.5-5.1); SODIUM,NA 138 mmol/L (136-148)
== END 2019-12-13 22:36 ==
LOC: MW.ED 18:34
DX: R45.851 Suicidal ideations (principal); I10 Essential (primary) hypertension; Z91.013 Allergy to seafood
CPT/HCPCS: 36415; 80053; 80305-QW; 80307; 81001; 83735; 84443; 85025; 93005; 99285-25; U0002